=== PATIENT | female | born 1995 | race Caucasian/White ===

== ENCOUNTER → 2019-02-12 14:56 | Outpatient (POV) | payer BC, SELFPAY | PROVIDERS: Visit Provider Dermatology | DX: Z00.00 Encounter for general adult medical examination without abnormal findings (principal) ==

== ENCOUNTER → 2019-06-04 15:16 | Outpatient (POV) | payer BC, SELFPAY | PROVIDERS: Visit Provider Dermatology | DX: Z00.00 Encounter for general adult medical examination without abnormal findings (principal) ==

== ENCOUNTER → 2019-07-16 13:03 | Outpatient (POV) | payer OTHER, SELFPAY ==
[2019-07-16 14:09] LABS: Basophils % 0.4 % (0.1-2.0); Eosinophils # 0.3 K/mm3 (0.0-0.4); Eosinophils % 3.9 % (0.1-12.0); Hematocrit 42.9 % (37.0-47.0); Hemoglobin 13.4 g/dL (12.2-16.2); Lymphocytes # 1.9 K/mm3 (0.7-4.5); Lymphocytes % 29.2 % (10-50); Mean Corpuscular HGB Conc 31.2 g/dL (31.8-35.4); Mean Corpuscular Hemoglobin 30.5 pg (27.0-31.2); Mean Corpuscular Volume 97.6 fl (81-99); Mean Platelet Volume 8.1 fl (7.4-10.4); Monocytes # 0.3 K/mm3 (0.1-1.0); Monocytes % 4.6 % (1.7-9.3); Neutrophils % 61.9 % (37.0-80.0); Platelet Count 309 K/mm3 (142-424); Red Cell Distribution Width 13.9 % (11.5-17.5); White Blood Count 6.5 K/mm3 (4.8-10.8)
[2019-07-16 17:17] LABS: Alanine Aminotransferase 21 U/L (12-78); Albumin Level 3.5 gm/dL (3.4-5.0); Albumin/Globulin Ratio 0.9 (1.1-1.8); Alkaline Phosphatase 84 U/L (46-116); Anion Gap 12.4 mEq/L (5-15); Aspartate Amino Transferase 12 U/L (15-37); Bilirubin,Total 0.3 mg/dL (0.2-1.0); Blood Urea Nitrogen 11 mg/dL (7-18); Calcium 9.2 mg/dL (8.5-10.1); Carbon Dioxide 24 mmol/L (21.0-32.0); Chloride 106 mmol/L (98-107); Chol/HDL Ratio 5.4 (1-3.5); Cholesterol 209 mg/dL (140-200); Creatinine,Serum 0.91 mg/dL (0.55-1.02); Estimated Glomerular Filt Rate 77 ml/min (>60); GFR (African American) 94 ML/MIN (>60); Globulin 3.8 gm/dl (1.3-3.2); Glucose 80 mg/dL (74-106); HDL Cholesterol 39 mg/dL (29-89); LDL Cholesterol 138 mg/dL (0-130); Potassium 4.4 mmoL/L (3.5-5.1); Sodium 138 mmol/L (136-145); Total Protein,Serum 7.3 gm/dL (6.4-8.2); Triglycerides 158 mg/dL (30-200); VLDL Cholesterol 32 mg/dL (0-40)
== END ==
PROVIDERS: Visit Provider Dermatology
DX: Z79.899 Other long term (current) drug therapy (principal)
CPT/HCPCS: 36415; 80053; 80061; 85025

== ENCOUNTER → 2019-08-20 08:06 | Outpatient (CLI) | payer OTHER, SELFPAY ==
[2019-08-20 08:42] LABS: Basophils % 0.3 % (0.1-2.0); Eosinophils # 0.5 K/mm3 (0.0-0.4); Eosinophils % 4.1 % (0.1-12.0); Hematocrit 39.8 % (37.0-47.0); Hemoglobin 12.9 g/dL (12.2-16.2); Lymphocytes # 2.9 K/mm3 (0.7-4.5); Lymphocytes % 26.2 % (10-50); Mean Corpuscular HGB Conc 32.5 g/dL (31.8-35.4); Mean Corpuscular Hemoglobin 30.7 pg (27.0-31.2); Mean Corpuscular Volume 94.4 fl (81-99); Mean Platelet Volume 8.4 fl (7.4-10.4); Monocytes # 0.4 K/mm3 (0.1-1.0); Monocytes % 3.7 % (1.7-9.3); Neutrophils # 7.3 K/mm3 (1.8-7.8); Neutrophils % 65.7 % (37.0-80.0); Platelet Count 337 K/mm3 (142-424); Red Blood Count 4.22 M/mm3 (4.20-5.40); Red Cell Distribution Width 13.7 % (11.5-17.5); White Blood Count 11.2 K/mm3 (4.8-10.8)
[2019-08-20 09:45] LABS: HCG Qualitative, Serum Negative (Negative)
[2019-08-20 10:23] LABS: Alanine Aminotransferase 21 U/L (12-78); Albumin Level 3.5 gm/dL (3.4-5.0); Albumin/Globulin Ratio 0.9 (1.1-1.8); Alkaline Phosphatase 87 U/L (46-116); Anion Gap 19.1 mEq/L (5-15); Aspartate Amino Transferase 13 U/L (15-37); Bilirubin,Total 0.2 mg/dL (0.2-1.0); Blood Urea Nitrogen 16 mg/dL (7-18); Calcium 8.8 mg/dL (8.5-10.1); Carbon Dioxide 22 mmol/L (21.0-32.0); Chloride 102 mmol/L (98-107); Chol/HDL Ratio 4.8 (1-3.5); Cholesterol 179 mg/dL (140-200); Creatinine,Serum 0.92 mg/dL (0.55-1.02); Estimated Glomerular Filt Rate 76 ml/min (>60); GFR (African American) 92 ML/MIN (>60); Globulin 3.8 gm/dl (1.3-3.2); Glucose 82 mg/dL (74-106); HDL Cholesterol 37 mg/dL (29-89); LDL Cholesterol 107 mg/dL (0-130); Potassium 4.1 mmoL/L (3.5-5.1); Sodium 139 mmol/L (136-145); Total Protein,Serum 7.3 gm/dL (6.4-8.2); Triglycerides 174 mg/dL (30-200); VLDL Cholesterol 35 mg/dL (0-40)
== END ==
PROVIDERS: Visit Provider Dermatology
DX: Z79.899 Other long term (current) drug therapy (principal)
CPT/HCPCS: 36415; 80053; 80061; 84703; 85025

== ENCOUNTER → 2019-08-20 15:02 | Outpatient (POV) | payer OTHER, SELFPAY | PROVIDERS: Visit Provider Dermatology | DX: Z00.00 Encounter for general adult medical examination without abnormal findings (principal) ==

== ENCOUNTER → 2019-11-18 14:54 | Outpatient (CLI) | payer OTHER, SELFPAY ==
[2019-11-18 15:34] LABS: Urine Pregnancy, HCG Qual. Negative (Negative)
== END ==
PROVIDERS: Visit Provider Dermatology
DX: L70.0 Acne vulgaris (principal); Z79.899 Other long term (current) drug therapy
CPT/HCPCS: 81025

== ENCOUNTER 2020-02-12 18:16 | Emergency (ER) | payer OTHER, SELFPAY ==
[2020-02-12 18:24] VITALS: BP 96/55; PULSE 85; RESP 18; TEMP 36.7; O2SAT 100; BMI 40.4
[2020-02-12 18:30] VITALS: BP 96/58; PULSE 88; RESP 18; TEMP 36.6; O2SAT 99; BMI 40.4
--- NOTE | 2020-02-12 18:35 | XR_ITS ---
PROCEDURE: XR ANKLE RT MIN 3V CLINICAL INDICATION: fall Pain and swelling COMPARISON: No exams were available for comparison FINDINGS: No fracture or dislocation. No lytic or blastic change. There is normal mineralization. The joint spaces are well-preserved. No significant degenerative/arthritic changes. No erosive changes evident. Other findings:There is some mild soft tissue swelling laterally. IMPRESSION: Mild soft tissue swelling otherwise negative Dictated by: Musa Serrano MD 02/13/2020 08:27 Electronically signed by Musa Serrano MD in [place] 02/13/2020 08:27
--- NOTE | 2020-02-12 19:14 | HMH.EDUTC ---
[facility] [place] Disposition Clinical Impression: Right ankle sprain Qualifiers: Encounter type: initial encounter Involved ligament of ankle: unspecified ligament Qualified Code(s): S93.401A - Sprain of unspecified ligament of right ankle, initial encounter Right ankle pain Qualifiers: Chronicity: acute Qualified Code(s): M25.571 - Pain in right ankle and joints of right foot Disposition: Home, Self-Care Condition on Discharge: Good Additional Instructions: Rest the extremity, apply ice for 15 minutes as tolerated three or four times per day, Elevate the extremity as tolerated while you are resting. Take ibuprofen for pain. I sent in a prescription to your pharmacy. Follow up with Dr. Prince. I put in a referral but you need to call her office and schedule an appointment. Follow up with your regular doctor. GO TO THE ER FOR ANY WORSENING SYMPTOMS Prescriptions: Ibuprofen [Ibuprofen 600mg Tablet] 600 mg PO Q6HP PRN #30 tab PRN Reason: Mild Pain Transmission Status: Received by Clinic Pharm[facility] Referrals: Braden Ivan MD [Primary Care Provider] - Lisa Prince DPM [Staff Physician] - Forms: Work/School Release Time of Disposition: 19:17 Medical Decision Making - Medical Records Medical records reviewed: No: I reviewed the patient's medical records. - Sigifredo Inquiry Pt receiving controlled substance: No Vital Signs: 02/12/20 18:24 02/12/20 18:30 02/12/20 19:21 Temperature 98.0 F 98 F 98 F Temperature Source Oral Oral Oral Pulse Rate 88 Pulse Rate [Right Radial] 85 88 Respiratory Rate 18 18 18 Blood Pressure 96/58 L Blood Pressure [Right Arm] 96/55 L 96/58 L Blood Pressure Mean [Right Arm] 68 70 Blood Pressure Source Automatic Cuff Blood Pressure Source [Right Arm] Automatic Cuff Automatic Cuff Blood Pressure Position Sitting Blood Pressure Position [Right Arm] Sitting Sitting 02 Sat by Pulse Oximetry 100 99 Oxygen Delivery Method Room Air Room Air Room Air Orders (Tests/Meds): ED MEDICATIONS Discontinued Medications Generic Name Dose Route Start Last Admin Trade Name Freq PRN Reason Stop Dose Admin Ibuprofen 800 mg 02/12/20 18:46 02/12/20 18:46 Motrin 400mg Tablet PO 02/12/20 18:47 800 mg ONCE ONE Administration - Radiology Data #1 Image(s): Ankle PROCEDURE: XR ANKLE RT MIN 3V CLINICAL INDICATION: fall Pain and swelling COMPARISON: No exams were available for comparison FINDINGS: No fracture or dislocation. No lytic or blastic change. There is normal mineralization. The joint spaces are well-preserved. No significant degenerative/arthritic changes. No erosive changes evident. Other findings:There is some mild soft tissue swelling laterally. IMPRESSION: Mild soft tissue swelling otherwise negative Dictated by: Musa Serrano MD 02/13/2020 08:27 Electronically signed by Musa Serrano MD in [place] 02/13/2020 08:27 [facility] [place] HPI - General Stated complaint: AO 02-12-20 1800 injury R ankle Time Seen by Provider: 02/12/20 18:30 Mode of Arrival: Wheelchair Source of Information: Patient Limitations: No Limitations Description of Symptoms (Recalled from Triage Doc. by RN): fell carrying groceries into the house. Right ankle pain and swelling HEENT Symptoms (Recalled from RN notes): No Resp Symptoms (Recalled from RN notes): No Skin Symptoms (Recalled from RN notes): No MS Symptoms (Recalled from RN notes): Yes Functional Status (Recalled from RN notes): wnl - History of Present Illness Provider Complaint: She states that earlier this evening she was walking on her drive way when uneven concrete caused her to twist her right ankle and fall. She c/o right ankle pain and swelling. The pain is worse when she tries to walk or bear weight on the ankle. She denies any other injury. - Related Data Home Medications Medication Instructions Recorded Confirmed escitalopram oxalate 20 mg tablet 20 mg PO 30 Days tab
[2020-02-12 19:21] VITALS: BP 96/58; PULSE 88; RESP 18; TEMP 36.6; O2SAT 99
== END 2020-02-12 19:22 | disposition home or self-care (01) ==
PROVIDERS: Emergency Provider Nurse Practitioner Family; PCP Internal Medicine Adolescent Medicine
DX: S93.401A Sprain of unspecified ligament of right ankle, initial encounter (principal); W01.0XXA Fall on same level from slipping, tripping and stumbling without subsequent striking against object, initial encounter; Y92.014 Private driveway to single-family (private) house as the place of occurrence of the external cause; F41.9 Anxiety disorder, unspecified
CPT/HCPCS: 29515; 73610; 99203

== ENCOUNTER → 2020-02-26 09:08 | Outpatient (CLI) | payer OTHER, SELFPAY ==
--- NOTE | 2020-02-26 09:13 | MR_ITS ---
PROCEDURE: MR ANKLE RT WO/W CON CLINICAL INDICATION: right ankle pain, injury Lateral ankle pain with limited range of motion and bruising COMPARISON: XR ANKLE RT MIN 3V from 02/12/2020 TECHNIQUE: Routine multiplanar multi echo sequences are performed without and with gadolinium enhancement. FINDINGS: The tibiofibular ligaments appear intact. There is tear of the ATFL with fluid at the site of the ATFL. The PT FL appears intact. The deltoid ligament fibers are not well-defined consistent with at least a partial tear. There is some edema of the neck and distal aspect of the talus medially. No obvious tendon abnormalities. There is a small ankle joint effusion. IMPRESSION: 1. Tear of the ATFL with ankle joint effusion. 2. Suspected tear of the deltoid ligament 3. Bone bruise of the neck and distal aspect of the talus medially Dictated by: Musa Serrano MD 03/01/2020 10:18 Electronically signed by Musa Serrano MD in [place] 03/01/2020 10:18
== END ==
PROVIDERS: PCP Internal Medicine Adolescent Medicine; Visit Provider Podiatrist
DX: M25.571 Pain in right ankle and joints of right foot (principal); S93.401A Sprain of unspecified ligament of right ankle, initial encounter
CPT/HCPCS: 73723; A9576

== ENCOUNTER → 2020-04-28 14:32 | Outpatient (CLI) | payer OTHER, SELFPAY ==
--- NOTE | 2020-04-28 15:14 | ECG_ITS ---
APPROVED REPORT Exam: Resting ECG HR:81 bpm ECG Measurements Heart Rate 81 AXES HI 158 P 38 QRSd 68 QRS 37 QT 388 T 46 QTc 450 <Conclusion> Sinus rhythm with sinus arrhythmia with occasional premature ventricular complexes Low voltage QRS Borderline ECG Electronically signed by : Charles Irizarry, 04/28/2020 16:54:55
--- NOTE | 2020-04-28 15:15 | XR_ITS ---
PROCEDURE: XR CHEST 2V CLINICAL HISTORY: ASTHMA, PREOP COMPARISON: CR CXR CHEST(2 VIEWS-NOT PORTABLE) from 06/12/2015 CR CXR CHEST(2 VIEWS-NOT PORTABLE) from 04/17/2017 FINDINGS: The cardiomediastinal silhouette and pulmonary vascularity are within normal limits. The lungs are clear without infiltrates, suspicious nodules, or pleural effusions. No acute bony abnormalities. IMPRESSION: No acute findings. Dictated by: Musa Serrano MD 04/28/2020 15:58 Musa Serrano MD in [place] 04/28/2020 15:58
[2020-04-28 15:16] LABS: Basophils # 0.1 K/mm3 (0-0.2); Basophils % 0.6 % (0.1-2.0); Eosinophils # 0.3 K/mm3 (0.0-0.4); Eosinophils % 3.6 % (0.1-12.0); Hemoglobin 12.3 g/dL (12.2-16.2); Lymphocytes # 3.3 K/mm3 (0.7-4.5); Lymphocytes % 37.5 % (10-50); Mean Corpuscular HGB Conc 33.3 g/dL (31.8-35.4); Mean Corpuscular Hemoglobin 29.5 pg (27.0-31.2); Mean Corpuscular Volume 88.7 fl (81-99); Mean Platelet Volume 7.9 fl (7.4-10.4); Monocytes # 0.4 K/mm3 (0.1-1.0); Neutrophils # 4.8 K/mm3 (1.8-7.8); Neutrophils % 54.3 % (37.0-80.0); Platelet Count 296 K/mm3 (142-424); Red Blood Count 4.17 M/mm3 (4.20-5.40); Red Cell Distribution Width 13.9 % (11.5-17.5); White Blood Count 8.8 K/mm3 (4.8-10.8)
[2020-04-28 16:42] LABS: Chloride 107 mmol/L (98-107); Potassium 4.2 mmoL/L (3.5-5.1); Sodium 141 mmol/L (136-145)
[2020-04-28 16:44] LABS: Alanine Aminotransferase 20 U/L (12-78); Aspartate Amino Transferase 21 U/L (14-36); Blood Urea Nitrogen 16 mg/dl (7-17); Estimated Glomerular Filt Rate 78 ml/min (>60); GFR (African American) 94 ML/MIN (>60)
[2020-04-28 16:45] LABS: Albumin Level 3.9 g/dl (3.5-5.0); Albumin/Globulin Ratio 1.3 (1.1-1.8); Alkaline Phosphatase 84 U/L (38-126); Anion Gap 14.2 mEq/L (5-15); Bilirubin,Total 0.2 mg/dl (0.2-1.3); Calcium 9.8 mg/dl (8.4-10.2); Carbon Dioxide 24 mmol/L (22.0-30.0); Globulin 3.1 g/dL (1.3-3.2); Glucose 99 mg/dl (74-100)
== END ==
PROVIDERS: Visit Provider Podiatrist
DX: Z01.818 Encounter for other preprocedural examination (principal); M25.371 Other instability, right ankle
CPT/HCPCS: 36415; 71046; 80053; 85025; 93005

== ENCOUNTER → 2020-05-19 08:29 | Outpatient (CLI) | payer OTHER, SELFPAY ==
[2020-05-19 10:13] LABS: Coronavirus 19 IgG Antibody Negative (Negative); Coronavirus 19 IgM Antibody Negative (Negative)
[2020-05-19 10:57] LABS: Urine Pregnancy, HCG Qual. Negative (Negative)
== END ==
PROVIDERS: Visit Provider Podiatrist
DX: Z01.818 Encounter for other preprocedural examination (principal); M25.371 Other instability, right ankle
CPT/HCPCS: 36415; 81025; 86328

== ENCOUNTER 2020-05-20 05:03 | Day surgery (SDC) | payer OTHER, SELFPAY ==
[2020-05-13 13:28] VITALS: BMI 42.0
[2020-05-20] VITALS (16 sets, daily range): BP systolic 90–133; BP diastolic 52–85; PULSE 95–108; RESP 16–20; TEMP 36.4–43; O2SAT 94–98
--- NOTE | 2020-05-20 05:51 | HMH.OPNOTE ---
Date of procedure: 05/20/20 Pre-op Diagnosis:: 1. Right chronic ankle instability 2. Right ankle ligament rupture 3. Right tear deltoid ligament 4. Right ankle sprain, ATFL tear 5. Right peroneal tendinitis/tear 6. Right gastrocnemius equinus 7. Right ankle pain 8. Morbid obesity with BMI of 40.0-44.9, adult Post-op Diagnosis:: Same Procedure performed:: 1. Right modified Brostrum lateral ankle ligament stabilization 2. Right syndesmosis ORIF 3. Right ankle synovectomy 4. Right ankle arthrotomy 5. Right open direct deltoid repair 6. Right gastrocnemius recession 7. Right peroneal tendon debridement and repair x (brevis and longus) 8. Application of amniotic tissue graft 9. Application of posterior splint Surgeon:: Lisa Prince DPM MINE CAR REPAIRER:: José Miguel De Souza Anesthesia: GETA, regional (right popliteal nerve block) Estimated blood loss (mL): 20 Clinical Note:: Right Chronic Ankle Instability: Right ankle x-ray taken 02/12/2020 evaluated by myself. FINDINGS: No fracture or dislocation. No lytic or blastic change. There is normal mineralization. The joint spaces are well-preserved. No significant degenerative/arthritic changes. No erosive changes evident. Other findings: There is some mild soft tissue swelling laterally. IMPRESSION: Mild soft tissue swelling otherwise negative. MRI RA 02/26/20, FINDINGS: The tibiofibular ligaments appear intact. There is tear of the ATFL with fluid at the site of the ATFL. The PTFL appears intact. The deltoid ligament fibers are not well defined consistent with at least a partial tear. There is some edema of the neck and distal aspect of the talus medially. No obvious tendon abnormalities. There is a small ankle joint effusion. IMPRESSION: 1. Tear of the ATFL with ankle joint effusion. 2. Suspected tear of the deltoid ligament. 3. Bone bruise of the neck and distal aspect of the talus medially. The patient is a 25F, has a history of chronic ankle instability. She has both functional and structural limitations with her right ankle. Patient can be walking and it gives way. Patient has fallen and has an unsteady gait due to the ankle instability. 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 Her job involves standing, walking, transporting being physical in several different ways. She is unable to be 100% nonweightbearing in sitting with her job. I explained although this is not an emergency surgery, she will continue to have structural/functional limitations and likely swelling and pain. My concern is if she delay surgery too long then her ankle may give out and she could sustain further injury including peroneal tendon tear, fifth metatarsal fracture or ankle fracture. It is okay for the patient to continue to work but I recommend she either use the lace up ankle stability brace or a fracture boot to give her some protection. She is unable to tolerate physical therapy. Postoperative surgical course discussed in detail with the patient and her mother. I explained she will be unable to drive for 4-6 weeks. Patient has worsening pain, symptoms and long standing instability to right ankle. Conservative treatment failed including: oral and topical NSAIDs, ice, elevation, bracing, immobilization, strapping, taping, stretching, physical therapy, modification of shoe gear and modification of activity. We discussed surgery. All risks and benefits were discussed including but not limited to: damage to blood vessels and nerves, bleeding, infection, wound complications, delayed, mal or non-union of bone, post-traumatic arthritis, need for further surgery, need for removal of implant, prolonged swelling of the extremity, prolonged pain, CRPS/RSD, DVT, and anesthetic complications. No guarantees were given. All questions fully answered. The patient/mother verbalized understanding and agreed to proceed with surgery. Labs/pre op testing pending. PCP Ramya Das/Dr. Ivan's group granted medical clearance. Discussed DME: recommend crutches and R
--- NOTE | 2020-05-20 06:51 | SUR.OPER ---
0651-family updated at this time
--- NOTE | 2020-05-20 08:24 | XR_ITS ---
PROCEDURE: XR ANKLE RT 2V CLINICAL INDICATION: ANKLE RECONSTRUCTION IN OR COMPARISON: CR ANKR3 ANKLE-RT-3 VIEWS from 03/08/2016 FINDINGS: Fluoroscopy time: 38 seconds. Single view submitted showing syndesmotic repair with lateral fibular bone plate and medial tibial button with translucent fixator with good alignment. IMPRESSION: Good alignment status post syndesmosis repair Dictated by: Musa Serrano MD 05/20/2020 16:54 Musa Serrano MD in [place] 05/20/2020 16:54
--- NOTE | 2020-05-20 08:30 | XR_ITS ---
PROCEDURE: XR ANKLE RT MIN 3V CLINICAL INDICATION: Post op ankle Follow-up surgery COMPARISON: CR ANKR3 ANKLE-RT-3 VIEWS from 03/08/2016 CR XR ANKLE RT MIN 3V from 02/12/2020 CR XR ANKLE RT 2V from 05/20/2020 FINDINGS: Status post syndesmotic repair with lateral bone plate at distal fibula and 8 button along the distal tibia medially with a translucent fixator. There is good alignment with preservation of the ankle mortise. Posterior splint is in place. IMPRESSION: Good alignment status post syndesmotic repair of the distal tib fib as described above Dictated by: Musa Serrano MD 05/20/2020 16:30 Musa Serrano MD in [place] 05/20/2020 16:30
--- NOTE | 2020-05-20 08:31 | SUR.OPER ---
0813-family updated at this time
--- NOTE | 2020-05-20 09:04 | P.PN_ITS ---
[facility] Anesthesia Record Part I Intake, IV Amount: 1,500 Estimated blood loss (mL): 20 Urine output (mL): 0 Blood Products used (#): none Blood Pressure: 90/60 SaO2: 96 Pulse Rate: 100 Respiratory Rate: 20 Temperature: 99.1 F Patient is:: Awake, Drowsy Stable to PACU at:: 08:59
--- NOTE | 2020-05-20 09:04 | HMH.ANESCL ---
[facility] Anesthesia Checklist - Patient Identification Patient Identification: Arm Band, Verbal (Name & ) - Structural Data Admitted From: Home Planned Operative Procedure/s: r ankle stabilization Consent for Planned Operative Procedure(s) Verified: Yes Verified Documents: History and Physical - NPO Status Verified Time NPO: 00:00 - Chart Verification Results Verified: CBC, BMP - Additional verifications Patient : No Anesthesia Reactions: No Hx Blood Transfusions: No Blood Transfusion Reaction: No Cephalosporin Allergy: No Previous Colonoscopy: No - Cardiovascular Assessment Heart Sounds: S1 & S2 Pulse Strength: Baseline Pulse Rhythm: Regular Peripheral Edema: No - Airway Assessment C-Spine Mobility Assessed: Yes TMJ Mobility Assessed: Yes Dentition: Good Dentition - Neurological Assessment Level of Consciousness: Awake, Alert, Appropriate Hx Seizures: No Numbness or tingling in extremities: No - Anesthesia Plan Anesthesia Risk discussed: Yes Anesthesia Plan: Verified ASA Class: II Anesthesia Type: General w/block [facility] History I have reviewed the patient's past medical history: Yes Medical History: Reports:: Anxiety Denies:: Cancer, Diabetes Mellitus Type 1, Diabetes Mellitus Type 2, Internal Pacemaker, MRSA, Seizures *Have you ever received a pneumonia vaccine?: No *Have you received a flu vaccine this season?: Yes (2019) Other Medical History: Denies: Blood Transfusion Reaction Anesthesia experience/problems:: none Other Surgeries: Yes: No Previous Surgery. No: Pacemaker Amputation: No Fractures: No - *Social History Last grade of school completed: Advanced degree Smoking Status: Never smoker Alcohol Intake: never Substance Use Type: denies use *Occupational Status:: employed Housing: house Household Members: spouse *Travel in the last 8 weeks: None - Psychiatric History Pschychiatric History:: Reports:: Anxiety Family Hx:: No significant family history
--- NOTE | 2020-05-20 09:22 | PC.NURSE ---
0919- rad @ bedside getting post-op xrays
--- NOTE | 2020-05-20 09:48 | PC.NURSE ---
see emar for biomedical electronics technician
--- NOTE | 2020-05-20 12:42 | P.PN_ITS ---
[facility] Anesthesia Record Part II Discharge Time: 09:29 Destination: Surgical Day Care (OP Surgery) PACU nurse assessment reviewed?: Yes Patient Condition:: Good Anesthesia Complications:: None Swallowing reflex intact?: Yes Cyanosis?: No Blood Pressure: 120/70 Pulse Rate: 107 Temperature: 98.5 F Mental Status: Alert & Oriented Pain level:: 0 Nausea and/or vomitting:: None Intake, IV Amount: 30
== END 2020-05-20 11:44 | disposition home or self-care (01) ==
LOC: OR 05:04
PROVIDERS: PCP Internal Medicine Adolescent Medicine; Visit Provider Podiatrist
PROC: (CPT 27829; principal; 2020-05-20 06:00)
DX: M25.371 Other instability, right ankle (principal); M21.6X1 Other acquired deformities of right foot; M66.371 Spontaneous rupture of flexor tendons, right ankle and foot; M76.71 Peroneal tendinitis, right leg; E66.01 Morbid (severe) obesity due to excess calories; Z68.41 Body mass index [BMI] 40.0-44.9, adult; M66.361 Spontaneous rupture of flexor tendons, right lower leg; M66.271 Spontaneous rupture of extensor tendons, right ankle and foot; M62.461 Contracture of muscle, right lower leg; M24.471 Recurrent dislocation, right ankle
CPT/HCPCS: 27829; 27687; 27695; 27658; 27664; C5275; 73600; 73610; 96374; C1713; C1762; C1776; J2405; Q4211

== ENCOUNTER 2020-08-07 14:00 | Outpatient (RCR) | payer OTHER, SELFPAY ==
--- NOTE | 2020-07-06 11:50 | HMH.PTOPEV ---
PT Outpatient Evaluation Rehab PT Outpatient Evaluation Start: 07/06/20 11:14 Freq: Status: Active Protocol: Document 07/06/20 11:16 JULIO C (Rec: 07/06/20 11:50 JULIO C [id number]) Electronically Signed By Bladimir Monroe, PT 07/06/20 11:16 Outpatient Therapy Subjective History Subjective History Pt presents s/p R ankle stabilization sx. (peroneal repair, deltoid repair, gastroc recession) on 05/20/20. Pt reports sx. d/t chronic recurrent R ankle instability, with most recent sprain in February 2020. Pt very limited R ankle ROM and strength d/t prolonged NWBing and immobilization secondary to sx . protocol. Pt reports lingering post-op soreness as well. Chief Complaint Pain,Stiff,Weakness Symptom Type Ache,Sharp,Dull Symptoms Relieved By Rest/Positioning,Ice Symptoms Aggravated By Standing,Walking Prior Functional Limitations Standing,Walking Current Functional Limitations Standing,Walking,Stairs Symptom Description Constant but Variable Level of pain today (0-10) 3 Pain scale - at its best (0-10) 2 Pain scale - at its worst (0-10) 6 Ankle/Foot Eval Gait Observation General Gait Pattern Observation Decrease Weight Bear (R), Decrease Stride Lngth (R) Assistive Device Ambulation Assistive Device Axillary Crutches Palpation Tenderness right Ankle/Foot Palpation Findings Tenderness Ankle/Foot Palpation Overall Comment 2-3/4 sx. incisions ROM Ankle/Foot Dorsiflexion w/Knee Extended +10 Active Range Motion (degrees) Ankle/Foot Dorsiflexion w/Knee Extended +8 Passive Range (degrees) Ankle/Foot Plantar Flexion Active Range 10-40 of Motion (degrees) Ankle/Foot Eversion Active Range of 0-12 Motion (degrees) Ankle/Foot Inversion Active Range of 0-20 Motion (degrees) MMT Ankle Dorsiflexion Strength Grade 3 Fair Ankle Plantarflexion Strength Grade 3+ Fair+ Foot Eversion Strength Grade 3+ Fair+ Foot Inversion Strength Grade 3+ Fair+ Outpatient Therapy Assessment Impairments Problems/Impairmments Palpation Tenderness,Impaired Range of Motion,Impaired Strength,Impaired Gait Pattern ,Impaired Walking,Impaired Standing,Impaired Stair Climbing,Impaired Squatting,
--- NOTE | 2020-08-04 15:21 | HMH.RHREAS ---
Rehab Reassessment Rehab OP Re-assessment Start: 08/04/20 14:01 Freq: Status: Active Protocol: Document 08/04/20 14:01 JULIO C (Rec: 08/04/20 15:09 CHIKISESMEIKE [id number]) Electronically Signed By Bladimir Monroe, PT 08/04/20 14:01 Rehab Re-assessment Subjective Subjective PT REPORTS 3-7/10 R ANKLE/FOOT PAIN ON VAS, AND FEELS 60% BETTER OVERALL SINCE I EVAL Objective Objective Notes AROM: R ANKLE DF 0, PF 0-43, INV 0-25, EVR 0-12 PROM: R ANKLE DF 0-8, PF 0-50, INV 0-30, EVR 0-18 MMT: R ANKLE DF 4-4+/5, PF 4-/ 5, INV 4-/5, EVR 4-/5 TTP: SX INCISION MEDIAL ACHILLES 09/07 Assessment Progress Assessment Slower Than Expected Assessment Notes PT W/IMPROVED ROM, STRENGTH, AND TTP, HOWEVER, STILL POSSESSES SIGNIFICANT LIMITATIONS IN AROM, STRENGTH, AND GAIT PATTERN Patient goals met STG'S 02/09 LTG'S 09/15 Goals Not Met STG'S 10/12, LTG'S 07/16 Plan Plan PT TO CONT. W/SKILLED P.T. TO MAKE FURTHER IMPROVEMENTS IN R ANKLE ROM, STRENGTH, AND TTP TO ALLOW FOR OPTIMAL FUNCTION Frequency of Therapy 1-2X/WK Duration of therapy 3-4 WKS Time and Billing Re-Eval Time 15 Re-Eval Billing Units 1 PHYSICIAN CERTIFICATION: I certify the specified therapy services for Katelyn Malloy are required, authorized, and reviewed every 30 days.
== END 2020-08-07 14:05 | disposition home or self-care (01) ==
LOC: PT 14:00
PROVIDERS: PCP Internal Medicine Adolescent Medicine; Visit Provider Podiatrist
DX: Z98.890 Other specified postprocedural states; M25.371 Other instability, right ankle
CPT/HCPCS: 20560; 97010; 97014; 97110; 97112; 97140; 97163; 97164; G0283

== ENCOUNTER → 2020-08-10 15:41 | Outpatient (CLI) | payer OTHER, SELFPAY ==
--- NOTE | 2020-08-10 15:44 | XR_ITS ---
PROCEDURE: XR ANKLE WT BEARING RT MIN 3V CLINICAL INDICATION: post-op pain Follow-up surgery COMPARISON: CR ANKR3 ANKLE-RT-3 VIEWS from 03/08/2016 CR XR ANKLE RT MIN 3V from 02/12/2020 CR XR ANKLE RT 2V from 05/20/2020 CR XR ANKLE RT MIN 3V from 05/20/2020 FINDINGS: Status post syndesmosis repair with lateral fibular bone plate with translucent fixator and medial metallic button at the distal tibia with good alignment and preservation the ankle mortise. Small bone island noted within the cuboid IMPRESSION: Good alignment postsurgical changes Dictated by: Musa Serrano MD 08/10/2020 17:38 Musa Serrano MD in [place] 08/10/2020 17:38
== END ==
PROVIDERS: PCP Internal Medicine Adolescent Medicine; Visit Provider Podiatrist
DX: Z98.890 Other specified postprocedural states (principal); M25.371 Other instability, right ankle
CPT/HCPCS: 73610

== ENCOUNTER → 2020-08-11 09:30 | Outpatient (CLI) | payer OTHER, SELFPAY ==
--- NOTE | 2020-08-11 09:30 | MR_ITS ---
PROCEDURE: MR ANKLE RT WO/W CON CLINICAL INDICATION: postop pain COMPARISON: MR MR ANKLE RT WO/W CON from 02/26/2020 CR XR ANKLE WT BEARING RT MIN 3V from 08/10/2020 TECHNIQUE: Routine multiplanar multi echo sequences are performed without gadolinium enhancement. FINDINGS: There has been interval syndesmotic repair with lateral fibular bone plate and medial tibial buttons. There is abnormal signal intensity of the peroneus brevis distal to the lateral malleolus with ill definition of the peroneus brevis at this area. This area also shows contrast enhancement. A partial tear or severe tendonitis/tendinosis is considered. There is some edema in this region as well. There is also some linear increased T2 signal with some minimal enhancement involving the peroneus longus tendon at this area which could be also be due to a partial tear. Small amount of fluid is present at the surgical site. Artifact is present from the previous surgery. The ATFL has been repaired and now apposes the talus. There is a moderate degree of motion on the coronal images. The deltoid ligament is not well delineated. The there is increased T2 signal along the plantar surface of the calcaneus. IMPRESSION: 1. Postsurgical changes of the tib fib with lateral fibular bone plate and medial tibial buttons with syndesmotic repair. 2. Abnormal signal intensity the peroneal brevis as described above suspicious for partial tear or tendinosis/tendinitis. There is also some increase T2 signal in the peroneus longus which may be due to partial tear or tendinitis/tendinosis. 3. Soft tissue edema along the plantar surface of the calcaneus Dictated by: Musa Serrano 08/11/2020 15:23 Musa Serrano in [place] 08/11/2020 15:23
== END ==
PROVIDERS: PCP Internal Medicine Adolescent Medicine; Visit Provider Podiatrist
DX: Z98.890 Other specified postprocedural states (principal)
CPT/HCPCS: 73723; A9576

== ENCOUNTER 2020-09-06 03:47 | Emergency (ER) | payer OTHER, SELFPAY ==
[2020-09-06 03:48] VITALS: BP 122/80; PULSE 111; RESP 16; TEMP 36.8; O2SAT 97; BMI 44.4
[2020-09-06 04:24] LABS: Microscopic, Urine URINE MICROSCOPIC (MICROSCOPIC)
[2020-09-06 04:26] LABS: Appearance,Urine CLOUDY (Clear); Bilirubin,Urine Negative (Negative); Blood, Urine 3+ (Negative); Color,Urine YELLOW (Yellow); Glucose,Urine (UA) Negative (Negative); Ketones,Urine Negative (Negative); Leukocyte Esterase,Urine 3+ (Negative); Nitrate,Urine Negative (Negative); Protein,Urine Negative (Negative); Urobilinogen,Urine 0.2 EU/dl (0.2)
[2020-09-06 04:30] LABS: Urine Pregnancy, HCG Qual. Negative (Negative)
[2020-09-06 04:31] LABS: RBC,Urine 20-50 #/hpf (0-3); WBC,Urine TNTC #/hpf (0-3)
--- NOTE | 2020-09-06 04:40 | HMH.EDGENADL ---
ED Disposition Clinical Impression: Urinary tract infection Disposition: Home, Self-Care Condition on Discharge: Good Instructions: DI for Urinary Tract Infection (UTI), DI for Urinary Tract Infection in Children Prescriptions: Cefdinir [Omnicef 300mg Capsule] 300 mg PO BID #20 cap Transmission Status: Pending to Clinic [facility] Referrals: Braden Ivan MD [Primary Care Provider] - - Critical Care Critical Care Time: No Attestation: On 09/06/20, the high probability of a clinically significant, sudden or life threatening deterioration of the following system(s) required my full and direct attention, intervention and personal management. The time I documented below is in addition to time spent performing reported procedures but includes the following listed in this critical care notation. Medical Decision Making - Medical Records Medical records reviewed: Yes: I reviewed the patient's medical records. - Sigifredo Inquiry Pt receiving controlled substance: No Vital Signs: 09/06/20 03:48 Temperature 98.2 F Temperature Source Oral Pulse Rate [Left Radial] 111 H Respiratory Rate 16 Blood Pressure [Right Arm] 122/80 Blood Pressure Mean [Right Arm] 94 Blood Pressure Source [Right Arm] Automatic Cuff Blood Pressure Position [Right Arm] Sitting 02 Sat by Pulse Oximetry 97 Oxygen Delivery Method Room Air - Lab Data Lab Results 09/06/20 03:57: Urine Color Yellow, Urine Appearance Cloudy, Urine pH 7.0, Ur Specific [place] 1.010, Urine Protein Negative, Urine Glucose (UA) Negative, Urine Ketones Negative, Urine Blood 3+, Urine Nitrate Negative, Urine Bilirubin Negative, Urine Urobilinogen 0.2, Ur Leukocyte Esterase 3+ A, Urine RBC 20-50, Urine WBC Tntc 09/06/20 03:57: Urine HCG, Qual Negative Orders (Tests/Meds): ED MEDICATIONS Discontinued Medications Generic Name Dose Route Start Last Admin Trade Name Freq PRN Reason Stop Dose Admin Phenazopyridine HCl 200 mg 09/06/20 04:33 09/06/20 04:35 Phenazopyridine 200mg Tablet PO 09/06/20 04:34 200 mg ONCE ONE Administration ORDERS Category Date Time Status Urine Culture Stat Micro 09/06/20 03:57 Received General Adult HPI - General Chief complaint: Urogenital-Female Stated complaint: Burning,frequency,bladder pain Time Seen by Provider: 09/06/20 04:40 Mode of Arrival: Ambulatory Limitations: No Limitations Description of Symptoms (Recalled from ER Triage Doc. by RN): Pt c/o dysuria starting around 8pm that has gotten worse. She does report lower back pain for 2 days as well. She states she feels like my bladder is having spasms . - History of Present Illness HPI narrative: This is a 25-year-old female who presents with a 6-hour history of dysuria. No fever, chills, nausea, vomiting, diarrhea, constipation, back pain. This is never happened before. - Related Data Home Medications Medication Instructions Recorded Confirmed escitalopram oxalate 20 mg tablet 20 mg PO DAILY 30 Days tab 09/14/18 08/11/20 topiramate 50 mg tablet 50 mg PO DAILY 30 Days tab 09/14/18 08/11/20 gabapentin 300 mg capsule 300 mg PO DAILY PRN cap 07/14/20 08/11/20 Previous Rx's Medication Instructions Recorded ibuprofen 800 mg tablet 800 mg PO BID #60 tab 04/28/20 triamcinolone acetonide 0.1 % 1 applic TOPICAL QID PRN 21 Days 06/22/20 topical cream #30 g levonorgestrel-ethinyl estradiol See Rx Instructions .ROUTE 07/01/20 0.1 mg-20 mcg tablet .COMPLEX #84 tablet Cefdinir [Omnicef 300mg Capsule] 300 mg PO BID #20 cap 09/06/20 Allergies Allergy/AdvReac Type Severity Reaction Status Date / Time No Known Allergies Allergy Verified 08/11/20 14:58 [facility] History - Hepatitis A Screen Drug use history?: No High risk sexual behaviors?: No History of sexually transmitted infection?: No Currently employed?: No Childcare worker?: No Do you have indoor plumbing?: Yes Do you have electricity?: Yes Attestation state
[2020-09-06 04:49] VITALS: BP 122/80; PULSE 111; RESP 16; TEMP 36.8; O2SAT 97
== END 2020-09-06 04:50 | disposition home or self-care (01) ==
PROVIDERS: Emergency Provider Physician Assistant; PCP Internal Medicine Adolescent Medicine
DX: N30.00 Acute cystitis without hematuria (principal); F41.9 Anxiety disorder, unspecified; Z79.899 Other long term (current) drug therapy
CPT/HCPCS: 81001; 81025; 87086; 87088; 87186; 99282

== ENCOUNTER → 2020-09-09 16:05 | Outpatient (CLI) | payer OTHER, SELFPAY ==
[2020-09-09 17:00] LABS: Basophils # 0.1 K/mm3 (0-0.2); Basophils % 0.7 % (0.1-2.0); Eosinophils # 0.3 K/mm3 (0.0-0.4); Eosinophils % 4.8 % (0.1-12.0); Hematocrit 40.9 % (37.0-47.0); Hemoglobin 13.9 g/dL (12.2-16.2); Lymphocytes # 2.5 K/mm3 (0.7-4.5); Lymphocytes % 37.8 % (10-50); Mean Corpuscular HGB Conc 33.9 g/dL (31.8-35.4); Mean Corpuscular Hemoglobin 30.7 pg (27.0-31.2); Mean Corpuscular Volume 90.7 fl (81-99); Mean Platelet Volume 8.7 fl (7.4-10.4); Monocytes # 0.3 K/mm3 (0.1-1.0); Monocytes % 5.1 % (1.7-9.3); Neutrophils # 3.4 K/mm3 (1.8-7.8); Neutrophils % 51.5 % (37.0-80.0); Platelet Count 317 K/mm3 (142-424); Red Blood Count 4.51 M/mm3 (4.20-5.40); Red Cell Distribution Width 14.2 % (11.5-17.5); White Blood Count 6.6 K/mm3 (4.8-10.8)
[2020-09-09 18:14] LABS: Chloride 108 mmol/L (98-107); Potassium 4.6 mmoL/L (3.5-5.1); Sodium 140 mmol/L (136-145)
[2020-09-09 18:17] LABS: Anion Gap 13.6 mEq/L (5-15); Blood Urea Nitrogen 14 mg/dl (7-17); Calcium 10.2 mg/dl (8.4-10.2); Carbon Dioxide 23 mmol/L (22.0-30.0); Estimated Glomerular Filt Rate 78 ml/min (>60); GFR (African American) 94 ML/MIN (>60); Glucose 100 mg/dl (74-100)
[2020-09-09 18:32] LABS: Coronavirus 19 IgG Antibody Positive (Negative); Coronavirus 19 IgM Antibody Negative (Negative)
[2020-09-10 12:57] LABS: HCG Qualitative, Serum Negative (Negative)
== END ==
PROVIDERS: PCP Internal Medicine Adolescent Medicine; Visit Provider Podiatrist
DX: Z01.818 Encounter for other preprocedural examination (principal); Z86.19 Personal history of other infectious and parasitic diseases; S86.311A Strain of muscle(s) and tendon(s) of peroneal muscle group at lower leg level, right leg, initial encounter; M76.71 Peroneal tendinitis, right leg
CPT/HCPCS: 36415; 80048; 84702; 84703; 85025; 86328

== ENCOUNTER 2020-09-11 10:06 | Day surgery (SDC) | payer OTHER, SELFPAY ==
[2020-09-08 11:23] VITALS: BMI 42.4
[2020-09-11] VITALS (9 sets, daily range): BP systolic 100–131; BP diastolic 50–84; PULSE 59–109; RESP 16–20; TEMP 36.1–36.4; O2SAT 94–97
--- NOTE | 2020-09-11 13:53 | HMH.OPNOTE ---
Date of procedure: 09/11/20 Pre-op Diagnosis:: 1. Right peroneal tendon tear 2. Right ankle synovitis Post-op Diagnosis:: Same + tear at peroneal myotendinous junction Procedure performed:: 1. Right peroneus brevis tendon repair 2. Right peroneus longus tendon repair (+ repair of tear at peroneal myotendinous junction) 3. Right foot synovectomy 4. Application of amniotic graft 5. Application of posterior splint Surgeon:: Lisa Prince DPM REGIONAL TRAINER:: Braden Watson Anesthesia: GETA, regional (right popliteal nerve block) Estimated blood loss (mL): 20 Clinical Note:: The patient is a 25-year-old female who underwent a right Brostr?m, syndesmosis stabilization, deltoid ligament repair and peroneal tendon debridement with gastrocnemius recession on 05/20/2020. Patient was making improvements and was full weightbearing in a supportive shoe with an ankle brace during physical therapy. She states she had a setback and physical therapy and it never improved. She was reimmobilized in a new MRI confirmed peroneal tendon pathology. I reviewed and discussed the MRI with the patient. I explained that there are postsurgical changes to the MRI. The patient's pain clinically is isolated to the brevis tendon inferior to the distal fibula. Based on the increase in acute pain with passive range of motion it is possible that she partially tore the PB. I explained is also possible that it is tendinosis/tendinitis. Patient failed a strict nonweightbearing in the boot with crutches and walking in the boot. Unable to tolerate more physical therapy due to worsening pain and symptoms. After a long discussion with the patient in regards to the conservative versus surgical treatment for the tendon tear/deformity, the patient has elected to proceed with surgery because they have failed conservative treatment and continue to have pain and worsening symptoms affecting daily activities. The patient has been instructed on the planned procedure, all risk versus benefits of the procedure discussed. These include but are not limited to: bleeding, infection, nerve and blood vessel damage, need for further surgery, delay in healing of soft tissue or bone, tendon re-rupture, failure of bones to heal, non-union, mal-union, failure of the implant, prolonged pain and recovery, CRPS/RSD, DVT and anesthetic complications. No guarantees were given. All questions fully answered. The patient verbalized understanding and agreed to proceed with surgery. Written consent was obtained. Necessary labs and pre-op testing ordered: CBC, CMP, covid. Patient has crutches, RKS. e-Rx for Percocet 7.5mg #42, gabapentin 300mg TID prn, Zofran 4mg # 30, Motrin 800mg # 60 given. Operative findings:: There was significant scar tissue noted full-thickness to the right lateral ankle. There was synovitis noted around the peroneal tendons. There was thickened scar tissue around both the brevis and longus tendons inferior to the distal malleolus. The tendon sheath was scarred down to the brevis tendon at this level making it not well visualized until scar fibrosis tissue debrided. There was a longitudinal tear noted more proximal to the distal fibula. Tear around 2-3 cm long noted at the peroneal myotendinous junction. Operative note:: On this date and time, the patient was deemed an appropriate surgical candidate. With informed consent signed, the patient was taken to the operating theater after a pre-op regional popliteal nerve block was given by anesthesia. The patient was positioned supine. General anesthesia was induced. Tourniquet was applied to the RIGHT mid calf. The lower extremity was prepped and draped in normal sterile fashion. Right ankle synovectomy: The tourniquet was inflated at 225 mmHg. Attention was directed to the lateral foot where the incision was mapped out extending proximal the distal fibula extending toward the base of the fifth metatarsal along the course of the peroneal tendons, over previous thick scar tis
--- NOTE | 2020-09-11 14:40 | SUR.OPER ---
1429-updated family at this time
--- NOTE | 2020-09-11 16:22 | HMH.ANESCL ---
[facility] Anesthesia Checklist - Patient Identification Patient Identification: Arm Band, Verbal (Name & ) - Structural Data Admitted From: Home Planned Operative Procedure/s: right peroneal tendon repair Consent for Planned Operative Procedure(s) Verified: Yes Verified Documents: History and Physical - NPO Status Verified Time NPO: 00:00 - Chart Verification Results Verified: CBC, BMP - Additional verifications Patient : No Anesthesia Reactions: No Hx Blood Transfusions: No Blood Transfusion Reaction: No Cephalosporin Allergy: No Previous Colonoscopy: No - Cardiovascular Assessment Heart Sounds: S1 & S2 Pulse Strength: Baseline Pulse Rhythm: Regular Peripheral Edema: No - Airway Assessment C-Spine Mobility Assessed: Yes TMJ Mobility Assessed: Yes Dentition: Good Dentition - Neurological Assessment Level of Consciousness: Awake, Alert, Appropriate Hx Seizures: No Numbness or tingling in extremities: No - Anesthesia Plan Anesthesia Risk discussed: Yes Anesthesia Plan: Verified ASA Class: III Anesthesia Type: General [facility] History I have reviewed the patient's past medical history: Yes Medical History: Reports:: Anxiety Denies:: Cancer, Diabetes Mellitus Type 1, Diabetes Mellitus Type 2, Internal Pacemaker, MRSA, Seizures *Have you ever received a pneumonia vaccine?: No *Have you received a flu vaccine this season?: Yes Other Medical History: Denies: Blood Transfusion Reaction Anesthesia experience/problems:: none Other Surgeries: Yes: No Previous Surgery. No: Pacemaker Amputation: No Fractures: No - *Social History Last grade of school completed: Advanced degree Smoking Status: Never smoker Alcohol Intake: never Substance Use Type: denies use *Occupational Status:: employed Housing: house Household Members: spouse *Travel in the last 8 weeks: None - Psychiatric History Pschychiatric History:: Reports:: Anxiety Family Hx:: No significant family history
--- NOTE | 2020-09-11 16:24 | HMH.ANESI ---
[facility] Anesthesia Record Part I Intake, IV Amount: 1,100 Estimated blood loss (mL): 10 Urine output (mL): 0 Blood Products used (#): none Blood Pressure: 100/71 SaO2: 96 Pulse Rate: 109 Respiratory Rate: 20 Temperature: 97.5 F Patient is:: Awake, Stable Stable to PACU at:: 16:19
== END 2020-09-11 17:25 | disposition home or self-care (01) ==
LOC: OR 10:06
PROVIDERS: PCP Internal Medicine Adolescent Medicine; Visit Provider Podiatrist
PROC: (CPT 27625; principal; 2020-09-11 13:00)
DX: S86.311A Strain of muscle(s) and tendon(s) of peroneal muscle group at lower leg level, right leg, initial encounter (principal); M76.71 Peroneal tendinitis, right leg; E66.01 Morbid (severe) obesity due to excess calories; Z68.41 Body mass index [BMI] 40.0-44.9, adult; M65.871 Other synovitis and tenosynovitis, right ankle and foot; X58.XXXA Exposure to other specified factors, initial encounter
CPT/HCPCS: 27625; 28200 ×2; 96374; C1762; J2405; Q4211

== ENCOUNTER → 2020-12-02 14:48 | Outpatient (CLI) | payer OTHER, SELFPAY ==
[2020-12-02 15:08] LABS: Basophils # 0.1 K/mm3 (0-0.2); Basophils % 0.8 % (0.1-2.0); Eosinophils # 0.3 K/mm3 (0.0-0.4); Eosinophils % 4.3 % (0.1-12.0); Hematocrit 39.8 % (37.0-47.0); Hemoglobin 13.7 g/dL (12.2-16.2); Lymphocytes # 2.3 K/mm3 (0.7-4.5); Lymphocytes % 34.5 % (10-50); Mean Corpuscular HGB Conc 34.5 g/dL (31.8-35.4); Mean Corpuscular Hemoglobin 31.1 pg (27.0-31.2); Mean Corpuscular Volume 90.1 fl (81-99); Mean Platelet Volume 8.7 fl (7.4-10.4); Monocytes # 0.3 K/mm3 (0.1-1.0); Monocytes % 4.7 % (1.7-9.3); Neutrophils # 3.7 K/mm3 (1.8-7.8); Neutrophils % 55.7 % (37.0-80.0); Platelet Count 287 K/mm3 (142-424); Red Blood Count 4.42 M/mm3 (4.20-5.40); Red Cell Distribution Width 14.1 % (11.5-17.5); White Blood Count 6.6 K/mm3 (4.8-10.8)
[2020-12-02 15:22] LABS: Hemoglobin A1C 5.5 % (4.0-6.0)
[2020-12-02 15:53] LABS: Alanine Aminotransferase 25 U/L (12-78); Albumin Level 4.4 g/dl (3.5-5.0); Albumin/Globulin Ratio 1.5 (1.1-1.8); Alkaline Phosphatase 94 U/L (38-126); Anion Gap 16.5 mEq/L (5-15); Aspartate Amino Transferase 29 U/L (14-36); Bilirubin,Total 0.4 mg/dl (0.2-1.3); Blood Urea Nitrogen 14 mg/dl (7-17); Calcium 9.9 mg/dl (8.4-10.2); Carbon Dioxide 16 mmol/L (22.0-30.0); Chloride 113 mmol/L (98-107); Chol/HDL Ratio 4.5 (1-3.5); Cholesterol 224 mg/dl (140-200); Estimated Glomerular Filt Rate 78 ml/min (>60); GFR (African American) 94 ML/MIN (>60); Globulin 2.9 g/dL (1.3-3.2); Glucose 95 mg/dl (74-100); HDL Cholesterol 50 mg/dl (40-60); Potassium 4.5 mmoL/L (3.5-5.1); Sodium 141 mmol/L (136-145); Total Protein,Serum 7.3 g/dl (6.3-8.2); Triglycerides 194 mg/dl (30-150); VLDL Cholesterol 39 mg/dL (0-40)
[2020-12-02 16:08] LABS: 25-OH Vitamin D, Total 25.1 ng/mL (30-100); Free Thyroxine Index 2.9 ug/dL (5.93-13.13); T4 (Thyroxine) 12.8 ug/dl (5.53-11.0); Triiodothryronine (T3) Uptake 23 % (23.5-40.5)
[2020-12-02 16:22] LABS: Thyroid Stimulating Hormone 1.63 uIU/mL (0.465-4.68)
[2020-12-02 16:43] LABS: Vitamin B12 219 pg/mL (239-931)
== END ==
PROVIDERS: Visit Provider Internal Medicine Adolescent Medicine
DX: R53.81 Other malaise (principal); R53.83 Other fatigue; E55.9 Vitamin D deficiency, unspecified; Z68.41 Body mass index [BMI] 40.0-44.9, adult
CPT/HCPCS: 36415; 80053; 80061; 82306; 82607; 83036; 84436; 84443; 84479; 85025

== ENCOUNTER → 2021-02-11 08:38 | Outpatient (CLI) | payer OTHER, SELFPAY ==
--- NOTE | 2021-02-11 08:43 | XR_ITS ---
PROCEDURE: XR ANKLE WT BEARING RT MIN 3V CLINICAL INDICATION: evaluate for stress reaction/stress fracture Pain COMPARISON: CR XR ANKLE RT MIN 3V from 02/12/2020 CR XR ANKLE RT 2V from 05/20/2020 CR XR ANKLE RT MIN 3V from 05/20/2020 CR XR ANKLE WT BEARING RT MIN 3V from 08/10/2020 FINDINGS: Status post syndesmotic repair with lateral fibular bone plate and translucent fixator with they medial metallic button at the distal tibia. The ankle mortise is preserved. On the AP view there is a vague oblique lucency at the base of the medial malleolus which could represent a nondisplaced fracture. This however could be due to an overlying artifact as a lucency appears to extend superiorly within the soft tissues. This is only seen on the AP view. Sclerotic focus overlies the cuboid posteriorly and may be due to a bone island IMPRESSION: Questionable nondisplaced fracture at the base of the medial malleolus versus artifact. CT or MRI may confirm. Good alignment status post syndesmotic repair Dictated by: Musa Serrano MD 02/11/2021 10:37 Musa Serrano MD in [place] 02/11/2021 10:37
== END ==
PROVIDERS: PCP Internal Medicine Adolescent Medicine; Visit Provider Podiatrist
DX: G89.18 Other acute postprocedural pain (principal); M25.571 Pain in right ankle and joints of right foot; Z98.890 Other specified postprocedural states
CPT/HCPCS: 73610

== ENCOUNTER → 2021-02-17 07:54 | Outpatient (CLI) | payer OTHER, SELFPAY ==
--- NOTE | 2021-02-17 07:55 | CT_ITS ---
PROCEDURE: CT ANKLE RT WO CON CLINICAL HISTORY: ankle pain COMPARISON: MR MR ANKLE RT WO/W CON from 08/11/2020 CR XR ANKLE WT BEARING RT MIN 3V from 02/11/2021 TECHNIQUE: Axial images obtained with sagittal and coronal reformats. All CT scans at the facility use one or more dose reduction, viz: automated exposure control, ma/kV adjustment per patient size (including targeted exams where dose is matched to indication, i.e. head), or iterative reconstruction technique. FINDINGS: There is some motion artifact which does somewhat degrade image quality. Accounting for this, no definitive discrete acute fracture. Postop changes of syndesmosis of right ankle with plate and screws fixating distal fibula and small plate fixating the medial malleolus are again noted. Ankle joint mortise appears intact. There is mild soft tissue swelling about the ankle joint. No other abnormality. IMPRESSION: Postop changes of repair of syndesmosis of right ankle as noted previously with plate and screws fixating distal fibula and small plate fixating the medial malleolus. No definite acute fracture. No dislocation. Mild soft tissue swelling about the ankle joint. Dictated by: Luis Angel Loza MD 02/17/2021 08:49 Luis Angel Loza MD in [place] 02/17/2021 08:49
== END ==
PROVIDERS: PCP Internal Medicine Adolescent Medicine; Visit Provider Podiatrist
DX: S82.54XA Nondisplaced fracture of medial malleolus of right tibia, initial encounter for closed fracture (principal); M25.571 Pain in right ankle and joints of right foot; M25.371 Other instability, right ankle
CPT/HCPCS: 73700

== ENCOUNTER → 2021-05-12 07:36 | Outpatient (CLI) | payer OTHER, SELFPAY ==
[2021-05-12 09:43] LABS: HCG,Quantitative < 2 mIU/ml (0-5.42)
== END ==
PROVIDERS: Visit Provider Nurse Practitioner Obstetrics & Gynecology
DX: Z34.90 Encounter for supervision of normal pregnancy, unspecified, unspecified trimester (principal)
CPT/HCPCS: 36415; 84702

== ENCOUNTER → 2021-06-18 02:09 | Outpatient (CLI) | payer OTHER, SELFPAY ==
[2021-06-18 02:24] LABS: Coronavirus 19, PCR Not Detected (NotDetected); Influenza A, PCR Not Detected (NotDetected); Influenza B, PCR Not Detected (NotDetected)
== END ==
PROVIDERS: PCP Internal Medicine Adolescent Medicine; Visit Provider Family Medicine
DX: Z20.822 Contact with and (suspected) exposure to COVID-19 (principal)
CPT/HCPCS: C9803; U0003; U0005

== ENCOUNTER 2021-08-29 09:05 | Emergency (ER) | payer OTHER, SELFPAY ==
[2021-08-29 09:10] VITALS: BP 111/73; PULSE 96; RESP 20; TEMP 36.9; O2SAT 98; BMI 41.8
[2021-08-29 09:43] LABS: UTC Strep Screen (Rapid) Negative (Negative)
[2021-08-29 09:47] LABS: Coronavirus 19, PCR Not Detected (NotDetected); Influenza A, PCR Not Detected (NotDetected); Influenza B, PCR Not Detected (NotDetected)
--- NOTE | 2021-08-29 09:50 | HMH.EDUTC ---
[facility] [place] Impression: COVID-19 virus test result unknown Maxillary sinusitis, acute Qualifiers: Recurrence: non-recurrent Qualified Code(s): J01.00 - Acute maxillary sinusitis, unspecified Disposition: Home, Self-Care Condition on Discharge: Good Instructions: DI for Sinusitis Additional Instructions: covid swab was sent to lab, call later today for results. self isolate until test results are known to be negative Start antibiotic patient to take as ordered for a full length of time even if you feel better. Sinus infections do not get better overnight. It may take 2-3 days to notice much improvement so be sure to use conservative measures as discussed for symptoms. Flonase 1 spray each nostril daily to help with nasal congestion, sinus and ear pressure/information Increase fluids Humidifier/vaporizer as needed Tylenol and ibuprofen as needed for fever or pain. If symptoms do not improve or get worse return or be seen in the ER Follow-up with primary care this week Prescriptions: predniSONE [Prednisone 20mg Tab] 20 mg PO BID #10 tab Prescription Printed Azithromycin [Zithromax 250mg tab] 250 mg PO DIRECTED #6 tab Prescription Printed Referrals: Braden Ivan MD [Primary Care Provider] - Time of Disposition: 10:00 Medical Decision Making - Sigifredo Inquiry Pt receiving controlled substance: No Vital Signs: 08/29/21 09:10 Temperature 98.4 F Temperature Source Oral Pulse Rate [Right Brachial] 96 H Respiratory Rate 20 Blood Pressure [Right Arm] 111/73 Blood Pressure Mean [Right Arm] 85 Blood Pressure Source [Right Arm] Automatic Cuff Blood Pressure Position [Right Arm] Sitting 02 Sat by Pulse Oximetry 98 Oxygen Delivery Method Room Air - Lab Data Lab Results 08/29/21 09:28: Strep Scn Rapid Clinic Negative Orders (Tests/Meds): ORDERS Category Date Time Status Rapid PCR Covid and Flu A/B Stat Lab 08/29/21 09:20 Received Strep Screen Confirmation Stat Micro 08/29/21 09:28 [place] [facility] [place] - General Chief complaint: [facility] Stated complaint: covid symptoms Time Seen by Provider: 08/29/21 09:50 Mode of Arrival: Ambulatory Source of Information: Patient Limitations: No Limitations Description of Symptoms (Recalled from Triage Doc. by RN): PATIENT C/O SORE THROAT, COUGH, CONGESTION, HEADACHE, SINUS DRAINAGE AND CHILLS SINCE YESTERDAY HEENT Symptoms (Recalled from RN notes): Yes Resp Symptoms (Recalled from RN notes): Yes Skin Symptoms (Recalled from RN notes): No MS Symptoms (Recalled from RN notes): No Functional Status (Recalled from RN notes): WNL - History of Present Illness Provider Complaint: 26 yr old female presents for sore throat,cough, dark yellow congestion, headache, sinus drainage and chills. - Related Data Home Medications Medication Instructions Recorded Confirmed escitalopram oxalate 20 mg tablet 20 mg PO DAILY 30 Days tab 09/14/18 08/29/21 Previous Rx's Medication Instructions Recorded Azithromycin [Zithromax 250mg 250 mg PO DIRECTED #6 tab 08/29/21 tab] predniSONE [Prednisone 20mg 20 mg PO BID #10 tab 08/29/21 Tab] Allergies Allergy/AdvReac Type Severity Reaction Status Date / Time No Known Allergies Allergy Verified 08/09/21 09:56 - Worker's Comp Is this a Worker's Comp case?: No [facility] History - Hepatitis A Screen Drug use history?: No High risk sexual behaviors?: No History of sexually transmitted infection?: No Currently employed?: No Childcare worker?: No Do you have indoor plumbing?: Yes Do you have electricity?: Yes Attestation statement:: This patient has been screened for Hepatitis A risk factors. I have reviewed the patient's past medical history: Yes Medical History: Reports:: Anxiety Denies:: Cancer, Diabetes Mellitus Type 1, Diabetes Mellitus Type 2, Internal Pacemaker, MRSA, Seizures Other Medical History: Denies: Blood Transfusion Reaction Othe
[2021-08-29 10:00] VITALS: BP 111/73; PULSE 96; RESP 20; TEMP 36.9; O2SAT 98
== END 2021-08-29 10:20 | disposition home or self-care (01) ==
PROVIDERS: Nurse Practitioner; Emergency Provider Nurse Practitioner Family; PCP Internal Medicine Adolescent Medicine
DX: J01.00 Acute maxillary sinusitis, unspecified (principal); F41.9 Anxiety disorder, unspecified; Z20.822 Contact with and (suspected) exposure to COVID-19
CPT/HCPCS: 87880; 99203; C9803; G0463; U0003; U0005

== ENCOUNTER 2021-11-07 14:40 | Emergency (ER) | payer OTHER, SELFPAY ==
[2021-11-07 14:45] VITALS: BP 114/67; PULSE 125; RESP 21; TEMP 38; O2SAT 98; BMI 43.4
[2021-11-07 15:03] LABS: UTC Influenza A Antigen Negative (Negative); UTC Influenza B Antigen Negative (Negative); UTC Strep Screen (Rapid) Negative (Negative)
--- NOTE | 2021-11-07 15:04 | HMH.EDUTC ---
[facility] [place]: Upper respiratory infection, viral Disposition: Home, Self-Care Condition on Discharge: Good Instructions: DI for Viral Upper Respiratory Infection -- Adult Additional Instructions: covid swab was sent to lab, call tomorrow for results. self isolate until test results are known to be negative No sign of a bacterial infection. Likely viral. Viruses can take 7-14 days to run their course. Nasal saline and bulb syringe or nose Pamela to remove nasal drainage to help with nasal congestion. Hard to eat, drink, sleep with nasal congestion so important to keep this cleaned out. Monitor temp. Tylenol or Motrin as needed for pain or fever Encourage fluids, water, Gatorade, Powerade, Pedialyte if /toddler/child Warm salt water gargles Warm fluids Sore throat lozenges Sleep elevated Humidifier/vaporizer Follow-up immediately for new or worsening symptoms or no noticeable improvement over the next 48-72 hours. Referrals: Braden Ivan MD [Primary Care Provider] - Time of Disposition: 15:07 Medical Decision Making - Sigifredo Inquiry Pt receiving controlled substance: No Vital Signs: 11/07/21 14:45 Temperature 100.4 F H Temperature Source Oral Pulse Rate [Left Brachial] 125 H Respiratory Rate 21 Blood Pressure [Left Arm] 114/67 Blood Pressure Mean [Left Arm] 82 Blood Pressure Source [Left Arm] Automatic Cuff Blood Pressure Position [Left Arm] Sitting 02 Sat by Pulse Oximetry 98 Oxygen Delivery Method Room Air - Lab Data Lab Results 11/07/21 14:48: Influenza Type A Ag Negative, Influenza Type B Ag Negative 11/07/21 14:48: Strep Scn Rapid Clinic Negative Orders (Tests/Meds): ORDERS Category Date Time Status Covid-19 Nasal PCR ([facility]) Routine Lab 11/07/21 15:04 Ordered Strep Screen Confirmation Stat Micro 11/07/21 14:48 [place] [facility] [place] - General Chief complaint: Urgent Treatment Center Stated complaint: cough, h/a, fever, congestion, dizzy Time Seen by Provider: 11/07/21 15:04 Mode of Arrival: Ambulatory Source of Information: Patient Limitations: No Limitations Description of Symptoms (Recalled from Triage Doc. by RN): PATIENT C/O HEADACHE, CHILLS, DIZZINESS, SORE THROAT, COUGH AND SINUS DRAINAGE SINCE YESTERDAY HEENT Symptoms (Recalled from RN notes): Yes Resp Symptoms (Recalled from RN notes): Yes Skin Symptoms (Recalled from RN notes): No MS Symptoms (Recalled from RN notes): No Functional Status (Recalled from RN notes): WNL - History of Present Illness Provider Complaint: 26 yr old female presents for chills,headache,nasal congestion, and sore throat - Related Data Allergies Allergy/AdvReac Type Severity Reaction Status Date / Time No Known Allergies Allergy Verified 08/09/21 09:56 - Worker's Comp Is this a Worker's Comp case?: No [facility] History - Hepatitis A Screen Drug use history?: No High risk sexual behaviors?: No History of sexually transmitted infection?: No Currently employed?: No Childcare worker?: No Do you have indoor plumbing?: Yes Do you have electricity?: Yes Attestation statement:: This patient has been screened for Hepatitis A risk factors. I have reviewed the patient's past medical history: Yes Medical History: Reports:: Anxiety Denies:: Cancer, Diabetes Mellitus Type 1, Diabetes Mellitus Type 2, Internal Pacemaker, MRSA, Seizures Other Medical History: Denies: Blood Transfusion Reaction Other Surgeries: Yes: No Previous Surgery, Other. No: Pacemaker Amputation: No Fractures: No Comment: Right Ankle 2019, R tendon repair 2020 - Social History Smoking Status: Never smoker Alcohol Intake: never Substance Use Type: denies use Occupational Status: employed Housing: house Household Members: spouse - Psychiatric History Pschychiatric History:: Reports:: Anxiety Family Hx:: No significant family history ROS Obtained: Yes Systems reviewed as appropriate & no additional complaints - Constitutional
[2021-11-07 15:07] VITALS: BP 114/67; PULSE 125; RESP 21; TEMP 38; O2SAT 98
== END 2021-11-07 15:12 | disposition home or self-care (01) ==
PROVIDERS: Emergency Provider Nurse Practitioner Family; PCP Internal Medicine Adolescent Medicine
DX: J06.9 Acute upper respiratory infection, unspecified (principal); R42 Dizziness and giddiness; F41.9 Anxiety disorder, unspecified; Z20.822 Contact with and (suspected) exposure to COVID-19
CPT/HCPCS: 87804; 87880; 99213; C9803; G0463; U0003; U0005

== ENCOUNTER → 2022-01-10 10:34 | Outpatient (CLI) | payer OTHER, SELFPAY ==
[2022-01-10 12:12] LABS: HCG,Quantitative 12552 mIU/ml (0-5.42)
== END ==
PROVIDERS: PCP Internal Medicine Adolescent Medicine; Visit Provider Nurse Practitioner Obstetrics & Gynecology
DX: N92.6 Irregular menstruation, unspecified (principal)
CPT/HCPCS: 36415; 84702

== ENCOUNTER → 2022-01-11 18:36 | Outpatient (CLI) | payer OTHER, SELFPAY ==
[2022-01-11 18:47] LABS: Coronavirus 19, PCR Not Detected (NotDetected); Influenza A, PCR Not Detected (NotDetected); Influenza B, PCR Not Detected (NotDetected)
== END ==
PROVIDERS: PCP Internal Medicine Adolescent Medicine; Visit Provider Nurse Practitioner Obstetrics & Gynecology
DX: Z11.52 Encounter for screening for COVID-19 (principal); J02.9 Acute pharyngitis, unspecified; R05.8 Other specified cough
CPT/HCPCS: C9803; U0003; U0005

== ENCOUNTER 2022-01-12 10:03 | Emergency (ER) | payer OTHER, SELFPAY ==
[2022-01-12 10:55] VITALS: BP 120/80; PULSE 102; RESP 16; TEMP 36.6; O2SAT 99; BMI 43.4
--- NOTE | 2022-01-12 11:06 | HMH.EDUTC ---
[facility] [place] Clinical Impression: Bronchitis Pharyngitis Qualifiers: Pharyngitis/tonsillitis etiology: unspecified etiology Qualified Code(s): J02.9 - Acute pharyngitis, unspecified Disposition: Home, Self-Care Condition on Discharge: Good Instructions: Sore Throat, DI for Pharyngitis/Tonsillopharyngitis -- Adult, DI for Acute Bronchitis Additional Instructions: Drink plenty of fluids. Take tylenol or ibuprofen for pain or fever. Take the medications as directed. Follow up with your regular doctor. GO TO THE ER FOR ANY WORSENING SYMPTOMS Prescriptions: Azithromycin [Z-Harlan 250mg Tab*] 250 mg PO UD DOSE PK #6 tab Transmission Status: Received by [facility] [employer] Referrals: Braden Ivan MD [Primary Care Provider] - Time of Disposition: 11:20 Medical Decision Making - Medical Records Medical records reviewed: No: I reviewed the patient's medical records. - Sigifredo Inquiry Pt receiving controlled substance: No Vital Signs: 01/12/22 10:55 01/12/22 11:21 Temperature 97.9 F 97.9 F Temperature Source Oral Pulse Rate 90 Pulse Rate [Radial] 102 H Respiratory Rate 16 16 Blood Pressure 120/80 Blood Pressure [Right Arm] 120/80 Blood Pressure Mean [Right Arm] 93 02 Sat by Pulse Oximetry 99 - Lab Data Lab results reviewed: Yes: I reviewed the patient's lab results. Lab Results 01/12/22 10:55: Group A Strep Rapid Negative Orders (Tests/Meds): ORDERS Category Date Time Status Strep Screen Confirmation Stat Micro 01/12/22 10:55 Received [facility] [place] - General Stated complaint: cough, congestion, sore throat Time Seen by Provider: 01/12/22 11:06 Mode of Arrival: Ambulatory Source of Information: Patient Limitations: No Limitations Description of Symptoms (Recalled from Triage Doc. by RN): pt c/o cough, congestion. flu and covid test yesterday were negative HEENT Symptoms (Recalled from RN notes): Yes Resp Symptoms (Recalled from RN notes): Yes Skin Symptoms (Recalled from RN notes): No MS Symptoms (Recalled from RN notes): No Functional Status (Recalled from RN notes): wnl - History of Present Illness Provider Complaint: She c/o sore throat and chest congestion with a productive cough for the past 3 days. - Related Data Previous Rx's Medication Instructions Recorded Azithromycin [Z-Harlan 250mg Tab*] 250 mg PO UD DOSE PK #6 tab 01/12/22 Allergies Allergy/AdvReac Type Severity Reaction Status Date / Time No Known Allergies Allergy Verified 01/12/22 10:57 - Worker's Comp Is this a Worker's Comp case?: No [facility] History - Hepatitis A Screen Attestation statement:: This patient has been screened for Hepatitis A risk factors. I have reviewed the patient's past medical history: Yes Medical History: Reports:: Anxiety Denies:: Cancer, Diabetes Mellitus Type 1, Diabetes Mellitus Type 2, Internal Pacemaker, MRSA, Seizures Other Medical History: Denies: Blood Transfusion Reaction Other Surgeries: Yes: No Previous Surgery, Other. No: Pacemaker Amputation: No Fractures: No Comment: Right Ankle 2019, R tendon repair 2020 - Social History Smoking Status: Never smoker Alcohol Intake: never Substance Use Type: denies use Occupational Status: employed Housing: house Household Members: spouse - Psychiatric History Pschychiatric History:: Reports:: Anxiety Family Hx:: No significant family history ROS Obtained: Yes All systems reviewed & no additional complaints - Constitutional Constitutional: Reports as per HPI - Eyes Eyes: Denies eye discharge - ENT Ears, Nose, Mouth, and Throat: Reports as per HPI - Cardiovascular Cardiovascular: Denies chest pain - Respiratory Respiratory: Reports chest congestion, Reports cough Physical Exam - General General appearance: alert, in no apparent distress - Head Head exam: atraumatic, normocephalic, normal inspection - Eye Eye exam: Present: normal appearance, PERRL, EOMI - ENT ENT
[2022-01-12 11:10] LABS: Strep Scrn Group A (Rapid) Negative (Negative)
[2022-01-12 11:21] VITALS: BP 120/80; PULSE 90; RESP 16; TEMP 36.6
== END 2022-01-12 11:23 | disposition home or self-care (01) ==
PROVIDERS: Emergency Provider Nurse Practitioner Family; PCP Internal Medicine Adolescent Medicine
DX: J20.9 Acute bronchitis, unspecified (principal); J02.9 Acute pharyngitis, unspecified; F41.9 Anxiety disorder, unspecified
CPT/HCPCS: 87430; 99212; G0463

== ENCOUNTER → 2022-02-04 11:51 | Outpatient (CLI) | payer OTHER, SELFPAY ==
[2022-02-04 12:20] LABS: Basophils % 0.4 % (0.1-2.0); Eosinophils # 0.2 K/mm3 (0.0-0.4); Eosinophils % 2.2 % (0.1-12.0); Hematocrit 32.8 % (37.0-47.0); Hemoglobin 13.1 g/dL (12.2-16.2); Lymphocytes # 1.9 K/mm3 (0.7-4.5); Lymphocytes % 23.4 % (10-50); Mean Corpuscular Hemoglobin 35.1 pg (27.0-31.2); Mean Corpuscular Volume 87.8 fl (81-99); Monocytes # 0.4 K/mm3 (0.1-1.0); Monocytes % 5.2 % (1.7-9.3); Neutrophils # 5.5 K/mm3 (1.8-7.8); Neutrophils % 68.9 % (37.0-80.0); Platelet Count 255 K/mm3 (142-424); Red Blood Count 3.74 M/mm3 (4.20-5.40); Red Cell Distribution Width 13.6 % (11.5-17.5)
[2022-02-05 06:12] LABS: HIV Screen 4th Generation wRfx Non Reactive (Non Reactive); Hepatitis B Surface Antigen Negative (Negative); Hepatitis C Antibody <0.1 s/co ratio (0.0-0.9)
[2022-02-05 07:22] LABS: Rubella Antibodies, IgG 9.53 index (Immune >0.99)
[2022-02-05 11:12] LABS: Rapid Plasma Reagin Ab Titer Non Reactive (NonRea<1:1)
[2022-02-07 21:12] LABS: Neisseria gonorrhoeae, NAA Negative (Negative)
== END ==
PROVIDERS: PCP Internal Medicine Adolescent Medicine; Visit Provider Obstetrics & Gynecology
DX: Z34.90 Encounter for supervision of normal pregnancy, unspecified, unspecified trimester (principal)
CPT/HCPCS: 36415; 85025; 86592; 86703; 86762; 86850; 87340; 87380; 87491; 87591; G0432

== ENCOUNTER → 2022-02-24 08:03 | Outpatient (CLI) | payer OTHER, SELFPAY | PROVIDERS: PCP Internal Medicine Adolescent Medicine; Visit Provider Obstetrics & Gynecology | DX: Z31.430 Encounter of female for testing for genetic disease carrier status for procreative management (principal); Z36.0 Encounter for antenatal screening for chromosomal anomalies; O28.3 Abnormal ultrasonic finding on antenatal screening of mother | CPT/HCPCS: 36415 ==

== ENCOUNTER → 2022-04-22 12:58 | Outpatient (CLI) | payer OTHER, SELFPAY ==
--- NOTE | 2022-04-22 12:59 | US_ITS ---
FINAL REPORT CLINICAL HISTORY: 20 week anatomy scan FINDINGS: There is a single live intrauterine gestation. Presentation is breech. The cervix is closed and measures 4.2 cm. Placenta is anterior and grade 1. Cardiac activity is confirmed. The fetus is active. Three-vessel cord with satisfactory umbilical cord insertion. Four-chamber heart is noted. brain and ventricles are unremarkable. Chest and diaphragm are unremarkable. ABDOMEN: Both kidneys are unremarkable. Stomach is unremarkable. SPINE: No anomalies identified. Both arms and legs noted. AMNIOTIC FLUID: Appropriate amount. MEASUREMENTS: ULTRASOUND AGE: 20 weeks 2 days. GESTATION AGE: 20 weeks 2 days. ESTIMATED WEIGHT: 334 g GROWTH PERCENTILE: 36% BPD: 4.8 cm consistent with 20 weeks 4 days. OFD: 6.1 cm consistent with 20 weeks 4 days. HC: 17.2 cm consistent with 19 weeks 6 days. AC: 14.9 cm consistent with 20 weeks 1 days. FL: 3.3 cm consistent with 20 weeks 2 days. CEREBELLUM: 2.0 cm consistent with 20 weeks 1 days. HUMERUS: 3.1 cm consistent with 20 weeks 2 days. HC/AC: 1.16 CI: 79% FL/BPD: 68% FL/AC: 22% IMPRESSION: Single living IUP with an ultrasound age of 20 weeks 2 days. Reviewed, Interpreted and Dictated by Brayan Downey III, MD Transcribed by Sylvain Villa Authenticated and [facility]
== END ==
PROVIDERS: PCP Internal Medicine Adolescent Medicine; Visit Provider Obstetrics & Gynecology
DX: Z34.90 Encounter for supervision of normal pregnancy, unspecified, unspecified trimester (principal); Z3A.20 20 weeks gestation of pregnancy
CPT/HCPCS: 76811

== ENCOUNTER → 2022-06-06 07:54 | Outpatient (CLI) | payer OTHER, SELFPAY ==
[2022-06-06 08:23] LABS: Basophils # 0.1 K/mm3 (0-0.2); Basophils % 0.7 % (0.1-2.0); Eosinophils # 0.2 K/mm3 (0.0-0.4); Eosinophils % 2.2 % (0.1-12.0); Hematocrit 36.2 % (37.0-47.0); Hemoglobin 12.1 g/dL (12.2-16.2); Lymphocytes # 2.3 K/mm3 (0.7-4.5); Lymphocytes % 20.7 % (10-50); Mean Corpuscular HGB Conc 33.5 g/dL (31.8-35.4); Mean Corpuscular Hemoglobin 30.8 pg (27.0-31.2); Mean Corpuscular Volume 91.9 fl (81-99); Monocytes # 0.5 K/mm3 (0.1-1.0); Monocytes % 4.9 % (1.7-9.3); Neutrophils # 7.8 K/mm3 (1.8-7.8); Neutrophils % 71.6 % (37.0-80.0); Platelet Count 278 K/mm3 (142-424); Red Blood Count 3.94 M/mm3 (4.20-5.40); Red Cell Distribution Width 15.1 % (11.5-17.5)
[2022-06-06 08:42] LABS: Glucose,Fasting 99 mg/dl (74-100)
[2022-06-06 10:04] LABS: Glucose 1 Hour 167 mg/dL (74-100)
== END ==
PROVIDERS: PCP Internal Medicine Adolescent Medicine; Visit Provider Obstetrics & Gynecology
DX: Z34.90 Encounter for supervision of normal pregnancy, unspecified, unspecified trimester (principal); Z3A.24 24 weeks gestation of pregnancy
CPT/HCPCS: 36415; 82951; 85025

== ENCOUNTER → 2022-06-09 07:20 | Outpatient (CLI) | payer OTHER, SELFPAY ==
[2022-06-09 07:58] LABS: Glucose,Fasting 98 mg/dl (74-100)
[2022-06-09 12:41] LABS: Glucose 1 Hour 147 mg/dL (74-100); Glucose 2 Hour 171 mg/dL (74-100)
[2022-06-09 12:42] LABS: Glucose 3 Hour 137 mg/dL (74-100)
== END ==
PROVIDERS: PCP Internal Medicine Adolescent Medicine; Visit Provider Obstetrics & Gynecology
DX: Z34.90 Encounter for supervision of normal pregnancy, unspecified, unspecified trimester (principal); Z3A.24 24 weeks gestation of pregnancy
CPT/HCPCS: 36415; 82951

== ENCOUNTER → 2022-06-14 10:24 | Outpatient (POV) | payer OTHER, SELFPAY | PROVIDERS: Visit Provider Dermatology | DX: Z00.00 Encounter for general adult medical examination without abnormal findings (principal) ==

== ENCOUNTER → 2022-07-10 22:33 | Outpatient (CLI) | payer OTHER, SELFPAY ==
[2022-07-10 22:47] LABS: Coronavirus 19, PCR Not Detected (NotDetected); Influenza A, PCR Not Detected (NotDetected); Influenza B, PCR Not Detected (NotDetected)
== END ==
PROVIDERS: PCP Internal Medicine Adolescent Medicine; Visit Provider Family Medicine
DX: Z20.822 Contact with and (suspected) exposure to COVID-19 (principal); R05.9 Cough, unspecified; R09.89 Other specified symptoms and signs involving the circulatory and respiratory systems; R52 Pain, unspecified
CPT/HCPCS: C9803; U0003; U0005

== ENCOUNTER 2022-07-13 08:00 | Emergency (ER) | payer OTHER, SELFPAY ==
--- NOTE | 2022-07-13 08:27 | EXP.UTC ---
Discharge Plan Disposition Patient Disposition: Home, Self-Care Condition: Good Prescriptions Prescriptions: New azithromycin [Zithromax] 250 mg tablet 250 mg PO UD DOSE PK Qty: 6 0RF Rx Instructions: Take two (2) tablets today, then one (1) tablet days #2 thru #5 No Action prenat.vits,debbie,[id number] Tablet 1 tab PO DAILY albuterol sulfate [ProAir HFA] 90 mcg/actuation HFA aerosol inhaler 2 puff IH Q6H PRN (Reason: shortness of breath or wheezing) Qty: 8.5 2RF buspirone 5 mg tablet 5 mg PO BID Qty: 60 2RF Adacel(Tdap Adolesn/Adult)(PF) 2 Lf-(2.5-5-3-5 mcg)-5Lf/0.5 mL syringe 0.5 ml IM ONCE Qty: 0.5 0RF ondansetron 4 mg tablet,disintegrating 4 mg PO Q8H PRN (Reason: nausea and vomiting) Qty: 20 2RF escitalopram oxalate [Lexapro] 10 mg tablet 10 mg PO DAILY Qty: 30 6RF (DME) blood-glucose meter [Accu-Chek Guide Glucose Meter] Misc See Rx Instructions .Route Qty: 1 0RF Rx Instructions: As directed (DME) Accu-Chek Guide test strips Strip See Rx Instructions .Route Qty: 100 3RF Rx Instructions: As directed (DME) Acti-Rhett Lancets 23 gauge misc See Rx Instructions .Route Qty: 200 3RF Rx Instructions: As directed Referrals Follow up/Referrals: Braden Ivan MD [Primary Care Provider] - See instructions Activity Restrictions/Add. Instructions Additional Instructions/Restrictions: Drink plenty of fluids. Take tylenol for pain or fever. Take the medications as directed. Follow up with your regular doctor. GO TO THE ER FOR ANY WORSENING SYMPTOMS Clinical Impressions Clinical Impression: Bronchitis Stand Alone Forms Stand Alone Forms: Work/School Release Instructions Patient Instructions: DI for Acute Bronchitis, DI for Viral Syndrome Discharge ED Provider: Luis Angel Cleary [facility] [place] HPI General Stated complaint: cough, chest congestion, drainage Time Seen by Provider: 07/13/22 08:25 History of Present Illness Provider Complaint: She states that for the past 2 days she has had a cough, chest congestion, scratchy sore throat and she has felt bad. Related Data Home Medications Medication Instructions Recorded Confirmed prenat.vits,debbie,vlf-[id number] 1 tab PO DAILY 02/04/22 07/07/22 Previous Rx's Medication Instructions Recorded ondansetron 4 mg disintegrating 4 mg PO Q8H PRN nausea and 03/03/22 tablet vomiting #20 tabs albuterol sulfate 90 mcg/actuation 2 puff inhalation Q6H PRN 04/26/22 aerosol inhaler (ProAir HFA) shortness of breath or wheezing #8.5 grams buspirone 5 mg tablet 5 mg PO BID #60 tabs 05/23/22 escitalopram oxalate 10 mg tablet 10 mg PO DAILY #30 tabs 06/06/22 (Lexapro) blood sugar diagnostic (Accu-Chek #100 ea 06/09/22 Guide test strips) blood-glucose meter (Accu-Chek #1 ea 06/09/22 Guide Glucose Meter) lancets 23 gauge (Acti-Rhett #200 ea 06/09/22 Lancets) azithromycin 250 mg tablet 250 mg PO UD DOSE PK #6 tabs 07/13/22 (Zithromax) Allergies Allergy/AdvReac Type Severity Reaction Status Date / Time No Known Allergies Allergy Verified 07/13/22 08:34 [facility] Medical History Gestational diabetes Social History Smoking Status: Never smoker alcohol intake: never substance use type: denies use current occupational status: employed Travel in the last 8 weeks: None household members: spouse housing: house current occupation: [employer] current occupational exposures/hazards: No caffeine: No ROS Obtained: Yes All systems reviewed & no additional complaints except as documented Constitutional Constitutional: Denies chills and Denies fever(s) Eyes Eyes: Denies eye discharge ENT Ears, Nose, Mouth, and Throat: Reports as per HPI Cardiovascular Cardiovascular: Denies chest pain Respiratory Respiratory: Denies chest congestion and Rep
[2022-07-13 08:32] VITALS: BP 138/76; PULSE 114; RESP 16; TEMP 36.8; O2SAT 97; BMI 43.8
[2022-07-13 08:33] LABS: UTC Strep Screen (Rapid) Negative (Negative)
[2022-07-13 09:00] VITALS: BP 138/76; PULSE 114; RESP 16; TEMP 36.8
[2022-07-13 09:11] LABS: Adenovirus,PCR Not Detected (NotDetected); Bordetella Pertussis Not Detected (NotDetected); Chlamydophila Pneumoniae, PCR Not Detected (NotDetected); Coronavirus 19, PCR Not Detected (NotDetected); Coronavirus 229E Not Detected (NotDetected); Coronavirus NL63 Not Detected (NotDetected); Coronavirus OC43 Not Detected (NotDetected); Coronovirus HKU1,PCR Not Detected (NotDetected); Human Metapneumovirus Not Detected (NotDetected); Influenza A, PCR Not Detected (NotDetected); Influenza AH1, 2009 Not Detected (NotDetected); Influenza AH1, PCR Not Detected (NotDetected); Influenza AH3,PCR Not Detected (NotDetected); Influenza B, PCR Not Detected (NotDetected); Mycoplasma Pneumoniae, PCR Not Detected (NotDetected); Parainfluenza 1, PCR Not Detected (NotDetected); Parainfluenza 2, PCR Not Detected (NotDetected); Parainfluenza 3, PCR Not Detected (NotDetected); Parainfluenza 4, PCR Not Detected (NotDetected); Respiratory Syncytial Virus Not Detected (NotDetected); Rhinovirus/Enterovirus Not Detected (NotDetected)
== END 2022-07-13 09:00 | disposition home or self-care (01) ==
PROVIDERS: Emergency Provider Nurse Practitioner Family; PCP Internal Medicine Adolescent Medicine
DX: J40 Bronchitis, not specified as acute or chronic (principal)
CPT/HCPCS: 87581; 87632; 87798; 87880; 99212; C9803; G0463; U0003; U0005

== ENCOUNTER 2022-07-19 12:51 | Outpatient (CLI) | payer OTHER, SELFPAY ==
--- NOTE | 2022-07-19 12:51 | US_ITS ---
FINAL REPORT CLINICAL HISTORY: lga FINDINGS: There is a single live intrauterine gestation. Presentation is cephalic. Placenta is anterior grade 2. movement is noted. Cardiac activity noted up to 195 beats per minute. Physician was notified. Amniotic fluid index is 13.08. Visualized anatomy is within normal limits. MEASUREMENTS: ULTRASOUND AGE: 33 weeks 6 days. GESTATION AGE: 32 weeks 3 days. ESTIMATED WEIGHT: 2198 g GROWTH PERCENTILE: 72 % BPD: 8.56 cm corresponding to 34 weeks 4 days. OFD: 11.01 cm corresponding to 35 weeks 4 days. HC: 30.98 cm corresponding to 34 weeks 5 days. AC: 29.92 cm corresponding to 34 weeks 0 days. FL: 6.14 cm corresponding to 32 weeks 0 days. HC/AC: 1.04 CI: 78% FL/BPD: 72% FL/AC: 21% IMPRESSION: Single living IUP with an ultrasound age of 33 weeks 6 days. Cardiac activity noted up to 195 beats per minute. Physician was notified. Reviewed, Interpreted and Dictated by Cliff Khan MD Transcribed by Josie Ocampo Authenticated and . [facility]
[2022-07-19 14:57] VITALS: BP 143/65; PULSE 114; RESP 17; TEMP 36.8; O2SAT 97; BMI 45.0
== END 2022-07-19 15:15 | disposition home or self-care (01) ==
LOC: RAD 13:47 → OB 13:50
PROVIDERS: PCP Internal Medicine Adolescent Medicine; Visit Provider Obstetrics & Gynecology
DX: O36.60X0 Maternal care for excessive fetal growth, unspecified trimester, not applicable or unspecified (principal)
CPT/HCPCS: 59025; 76816; G0463

== ENCOUNTER 2022-07-28 07:17 | Outpatient (CLI) | payer OTHER, SELFPAY ==
[2022-07-28 07:46] VITALS: BP 131/72; PULSE 107; RESP 18; TEMP 36.7; O2SAT 98; BMI 44.0
== END 2022-07-28 08:03 | disposition home or self-care (01) ==
LOC: OBOUT 07:18 → OB 07:19
PROVIDERS: PCP Internal Medicine Adolescent Medicine; Visit Provider Nurse Practitioner Obstetrics & Gynecology
DX: O26.893 Other specified pregnancy related conditions, third trimester (principal); Z3A.33 33 weeks gestation of pregnancy
CPT/HCPCS: 59025; G0463

== ENCOUNTER 2022-08-12 11:49 | Inpatient (IN) | payer OTHER, SELFPAY ==
[2022-08-12 12:10] VITALS: BP 137/95; PULSE 107; RESP 18; TEMP 36.2; O2SAT 100; BMI 46.2
[2022-08-12 12:24] VITALS: BMI 46.2
[2022-08-12 12:40] LABS: Microscopic, Urine URINE MICROSCOPIC (MICROSCOPIC)
[2022-08-12 12:43] LABS: Fetal Membrane Rupture (Rapid) Positive (Negative)
[2022-08-12 12:43] LABS: Appearance,Urine CLEAR (Clear); Bilirubin,Urine Negative (Negative); Blood, Urine Negative (Negative); Color,Urine YELLOW (Yellow); Glucose,Urine (UA) Negative (Negative); Ketones,Urine 1+ (Negative); Leukocyte Esterase,Urine Negative (Negative); Nitrate,Urine Negative (Negative); PH,Urine 6.5 (5.0-8.5); Protein,Urine Negative (Negative); Specific Gravity, Urine 1.015 (1.005-1.030); Urobilinogen,Urine 0.2 EU/dl (0.2)
[2022-08-12 12:52] LABS: RBC,Urine Occasional #/hpf (0-3); Squamous Epithelial Cell,Urine Occasional #/hpf (0-5)
[2022-08-12 12:54] LABS: Barbiturates Screen,Urine Negative ng/ml (<200)
[2022-08-12 12:55] LABS: Benzodiazepines Screen,Urine Negative ng/ml (<200)
[2022-08-12 12:56] LABS: Amphetamine/Metha Screen,Urine Negative ng/ml (<1000); Cannabinoid Screen,Urine Negative ng/ml (<50)
[2022-08-12 12:57] LABS: Cocaine Screen,Urine Negative ng/ml (<300); Methadone Screen,Urine Negative ng/ml (<300)
[2022-08-12 12:58] LABS: Opiate Screen,Urine Negative ng/ml (<300)
[2022-08-12 12:59] LABS: Phencyclidine Screen,Urine Negative ng/ml (<25)
[2022-08-12 13:34] LABS: Coronavirus 19, PCR Not Detected (NotDetected); Influenza A, PCR Not Detected (NotDetected); Influenza B, PCR Not Detected (NotDetected)
[2022-08-12 13:54] LABS: Chloride 108 mmol/L (98-107)
[2022-08-12 13:55] LABS: Potassium 4.5 mmoL/L (3.5-5.1); Sodium 136 mmol/L (136-145)
[2022-08-12 13:57] LABS: Alanine Aminotransferase 25 U/L (12-78); Albumin Level 3.5 g/dl (3.5-5.0); Albumin/Globulin Ratio 1.2 (1.1-1.8); Alkaline Phosphatase 174 U/L (38-126); Anion Gap 14.5 mEq/L (5-15); Aspartate Amino Transferase 41 U/L (14-36); Bilirubin,Total 0.4 mg/dl (0.2-1.3); Blood Urea Nitrogen 7 mg/dl (7-17); Carbon Dioxide 18 mmol/L (22.0-30.0); Creatinine Clearance Estimated 98 mL/min (50-200); Estimated Glomerular Filt Rate 122 ml/min (>60); GFR (African American) 147 ML/MIN (>60); Globulin 2.9 g/dL (1.3-3.2); Total Protein,Serum 6.4 g/dl (6.3-8.2)
[2022-08-12 13:58] LABS: Calcium 9.9 mg/dl (8.4-10.2)
[2022-08-12 14:07] LABS: Basophils % 0.3 % (0.1-2.0); Eosinophils # 0.2 K/mm3 (0.0-0.4); Eosinophils % 1.7 % (0.1-12.0); Glucose 50 mg/dl (74-100); Hematocrit 41.2 % (37.0-47.0); Hemoglobin 13.5 g/dL (12.2-16.2); Lymphocytes % 16.1 % (10-50); Mean Corpuscular HGB Conc 32.8 g/dL (31.8-35.4); Mean Corpuscular Hemoglobin 29.9 pg (27.0-31.2); Mean Corpuscular Volume 91.1 fl (81-99); Mean Platelet Volume 10.4 fl (7.4-10.4); Monocytes # 0.8 K/mm3 (0.1-1.0); Monocytes % 6.1 % (1.7-9.3); Neutrophils # 9.5 K/mm3 (1.8-7.8); Neutrophils % 75.8 % (37.0-80.0); Platelet Count 270 K/mm3 (142-424); Red Blood Count 4.52 M/mm3 (4.20-5.40); Red Cell Distribution Width 15.6 % (11.5-17.5); White Blood Count 12.5 K/mm3 (4.8-10.8)
--- NOTE | 2022-08-12 14:09 | P.CONPHA_ITS ---
Pharmacy Intervention Comments: MEDICATION RECONCILIATION COMPLETED ON PATIENT USING EXTERNAL FILL HISTORY FROM PHARMACY AND LIST FROM ORCHESTRA CONDUCTOR OFFICE. -MINISTERIO FOLEYD
--- NOTE | 2022-08-12 14:09 | HMH.PHAINT1 ---
Pharmacy Intervention Comments: MEDICATION RECONCILIATION COMPLETED ON PATIENT USING EXTERNAL FILL HISTORY FROM PHARMACY AND LIST FROM SILK SCREEN OPERATOR OFFICE. -MINISTERIO FOLEYD
--- NOTE | 2022-08-12 14:10 | EXP.OB.APHP ---
OB - H&P: HPI Antepartum History of Present Illness Chief complaint: Leakage of fluid History of present illness: Mrs Katelyn Malloy is a 27 yo at 35w6d, by LMP and confirmed by first trimester ultrasound, with EDC 09/10/22 who presents to [facility] L&D with complaint of leakage of fluid. She states she had a gush of fluid yesterday morning, 08/12/22, at 0930. No further leakage of fluid until this morning. She states this morning she had two gushes of fluid back to back around 1130. She presented to L&D and Amnisure was positive. Cervical exam was 4/75/-2. Patient states she is terrified of vaginal and perineal tears. She was told in the past that she has a narrow pelvis. Patient's mother had a 4th degree perineal laceration. Patient is requesting an elective . History of Present Criteria for establishing EDC:: LMP confirmed by 1st trimester US care: good care Ultrasounds: normal mid trimester US Obstetrical complications: gestational diabetes Labs Blood type: O (+) positive Rubella: immune RPR/VDRL: nonreactive HBsAG: negative [facility] Disclaimer: The information contained in this section may have been updated after the patient was seen, as this information can be updated by other users. Medical History (Updated 08/12/22 @ 15:34 by Felipa Clark DO) Gestational diabetes premature rupture of membranes (PPROM) with onset of labor within 24 hours of rupture in third trimester, antepartum Social History Smoking Status: Never smoker alcohol intake: never substance use type: denies use current occupational status: employed Travel in the last 8 weeks: None household members: spouse housing: house current occupation: [employer] current occupational exposures/hazards: No caffeine: No Review of Systems Review of Systems Review of systems:: pertinent systems reviewed and negative unless documented below Meds Home Medications and Allergies Home Medications Medication Instructions Recorded Confirmed Type prenat.vits,debbie,ibu-yltq-gdwuo 1 tab PO DAILY Supplement 02/04/22 08/12/22 History albuterol sulfate 90 mcg/actuation 2 puff inhalation Q6HP PRN 08/12/22 08/12/22 History aerosol inhaler (ProAir HFA) shortness of breath or wheezing escitalopram oxalate 10 mg tablet 10 mg PO DAILY MOOD 08/12/22 08/12/22 History (Lexapro) glyburide 5 mg tablet 2.5 mg PO BID Diabetes 08/12/22 08/12/22 History New Prescriptions to Start Prescriptions: Allergies Allergy/AdvReac Type Severity Reaction Status Date / Time No Known Allergies Allergy Verified 08/11/22 10:24 OB - H&P: Exam Constitutional no acute distress Routine HEENT Exam Head: Present normocephalic and atraumatic Eye: Absent conjunctivae pink ENT: Present mucous membranes moist and dentition normal Routine Neck Exam Present full ROM Routine Respiratory Exam Present CTA bilaterally and normal respiratory effort Routine Cardiovascular Exam Present RRR Routine Abdominal Exam Present soft (Gravid); Absent tenderness Routine Rectal Exam Patient deferred: visual exam Routine Exam Patient deferred: external exam Routine Extremities Exam Present edema (+1 bilateral lower extremity edema) and full ROM; Absent calf tenderness Routine Neurological Exam Present alert, oriented X3 and moving all extremities Routine Psychiatric Exam Present normal affect Detailed Labor and Delivery Exam Dilation (cm): 4 Effacement (%): 75 station: -2 Membranes: spontaneously ruptured Amniotic fluid: unevaluable Baseline heart rate: 150 monitor accelerations: Present monitor decelerations: None alf variability: Moderate (11-25) Contraction frequency (min): 1 OB - Results Labs Labs: Short CBC 08/12/22 Range/Units 13:16 WBC 12.5 H (4.8-10.8) K/mm3 Hgb 13.5 (12.2-16.2) g/dL Hct 41.2 (37.0-47.0) % Plt Count 270 (142-4
--- NOTE | 2022-08-12 15:38 | EXP.OP.NOTE ---
Date of procedure: 08/12/22 Pre-op Diagnosis:: 1. IUP at 35w6d 2. PPROM 3. Onset of labor 4. GDMA2 5. Morbid obesity 6. Anxiety Post-op Diagnosis:: 1. IUP at 35w6d 2. PPROM 3. Onset of labor 4. GDMA2 5. Morbid obesity 6. Anxiety Procedure performed:: Primary low transverse section Surgeon:: Felipa Clark DO Medical Donation Professional(s):: Lily Crews MD GLASS ENGRAVER:: Alan Pacheco Anesthesia: spinal Estimated blood loss (mL): 700 Clinical Note:: Mrs Katelyn Malloy is a 27 yo at 35w6d, by LMP and confirmed by first trimester ultrasound, with EDC 09/10/22 who presents to [facility] L&D with complaint of leakage of fluid. She states she had a gush of fluid yesterday morning, 08/12/22, at 0930. No further leakage of fluid until this morning. She states this morning she had two gushes of fluid back to back around 1130. She presented to L&D and Amnisure was positive. Cervical exam was 4/75/-2. Patient states she is terrified of vaginal and perineal tears. She was told in the past that she has a narrow pelvis. Patient's mother had a 4th degree perineal laceration. Patient is requesting an elective . Operative findings:: 1. Live female baby weighing 7 lb 2 oz, APGARs 7, 8 2. Direct OP presentation 3. Grossly normal appearing uterus, bilateral fallopian tubes and bilateral ovaries Operative note:: The risks, benefits and alternatives of the procedure were reviewed with the patient. Informed consent was obtained. Patient was taken to the operating room where epidural was bolused. The patient received 2 grams of Ancef and Azithromycin 500 mg IV preoperatively. Patient was placed in dorsal supine position with a leftward tilt. SCDs in place. Trejo catheter was placed and was draining clear urine prior to the start of the procedure. heart tones were obtained. Patient was then prepped and draped in normal sterile fashion. Vagina was prepped with Betadine swabs x 3. Allis clamp test was performed to ensure adequate anesthesia. A Pfannenstiel skin incision was made 2 cm above pubic symphysis. This was carried through to underlying layer of fascia. Fascia was incised in midline, extended laterally with Robison scissors. Superior aspect of fascial incision was grasped with two Kirk clamps, elevated up, and rectus muscle dissected off bluntly and sharply with Robison scissors. The retcus muscle was then in the midline and the peritoneum was entered bluntly with a digit. Peritoneal incision was then extended superiorly and inferiorly with good visualization of the bladder. Jimmy retractor was inserted. The lower uterine segment was incised in a transverse fashion. Clear amniotic fluid was noted. Head was delivered without difficulty in direct OP position. Remainder of body was delivered without difficulty. Mouth and nares were bulb suctioned. Spontaneous cry was noted. Delayed cord clamping was performed for 60 seconds. The umbilical cord was clamped and cut. The infant was handed to awaiting pediatric staff in stable condition. Dr. Dai was present. Apgars were 7(1 min), 8(5 min). Cord gases were obtained. Cord blood was obtained. Gentle traction on the umbilical cord and uterine fundal massage delivered the placenta. Placenta was intact. Placenta will be sent to pathology for review. Uterus was cleared of all clots and debris with a moist laparotomy sponge. Corners of the uterine incision were grasped with Allis clamps. The uterine incision was reapproximated with # 1 Vicryl suture in a running, locked stitch. Second layer of the same stitch was used to imbricate the incision. Excellent hemostasis was noted. Posterior cul-de-sac was cleaned with moist laparotomy sponge. (Uterus returned to the abdomen)Gutters cleared of all clots and debris with a moist laparotomy sponge. Reinspection of the lower uterine segment demonstrated sexcellent hemostasis. At this point all instruments and sponges were removed from the pelvis.? The peritoneum was grasped with Sima clamps x 3. The
[2022-08-12 15:40] VITALS: BP 125/70; PULSE 88; RESP 14; TEMP 36.2; O2SAT 100
--- NOTE | 2022-08-12 15:41 | EXP.ANES.I ---
[facility] Anesthesia Record Part I Anesthesia Record I Intake, IV Amount: 1,500 Estimated blood loss (mL): 700 Urine output (mL): 300 Blood Pressure: 125/70 SaO2: 100 Pulse Rate: 88 Respiratory Rate: 14 Temperature: 97.1 F Patient is:: Awake Stable to PACU at:: 15:40
[2022-08-12 15:42] VITALS: BP 125/70; PULSE 88; RESP 14; TEMP 36.2; O2SAT 100
--- NOTE | 2022-08-12 15:42 | EXP.ANES.CKL ---
[facility] Disclaimer: The information contained in this section may have been updated after the patient was seen, as this information can be updated by other users. Medical History (Updated 08/12/22 @ 15:34 by Felipa Clark DO) Gestational diabetes premature rupture of membranes (PPROM) with onset of labor within 24 hours of rupture in third trimester, antepartum Social History Smoking Status: Never smoker alcohol intake: never substance use type: denies use current occupational status: employed Travel in the last 8 weeks: None household members: spouse housing: house current occupation: [employer] current occupational exposures/hazards: No caffeine: No [employer] Anesthesia Checklist Patient Identification Patient Identification: Arm Band and Verbal (Name & ) Structural Data Admitted From: Direct Admit Planned Operative Procedure/s: Consent for Planned Operative Procedure(s) Verified: Yes Verified Documents: Surgical Consent Chart Verification Results Verified: CBC Additional verifications Anesthesia Reactions: No Hx Blood Transfusions: No Blood Transfusion Reaction: No Airway Assessment C-Spine Mobility Assessed: Yes TMJ Mobility Assessed: Yes Dentition: Good Dentition Neurological Assessment Level of Consciousness: Awake, Alert and Appropriate Anesthesia Plan Anesthesia Risk discussed: Yes ASA Class: II Anesthesia Type: Spinal
[2022-08-12 15:50] VITALS: BP 129/75; PULSE 86; RESP 14; RESP 16; O2SAT 100
[2022-08-12 15:55] LABS: POC Glucose,Bedside 56 (70-110)
--- NOTE | 2022-08-12 15:56 | SUR.OPER ---
1452- TOB viable female infant. apgars 7/8. cord ph 7.30
[2022-08-12 16:00] VITALS: BP 139/81; PULSE 83; RESP 14; O2SAT 100
[2022-08-12 16:10] VITALS: BP 147/87; PULSE 80; RESP 14; TEMP 36.2; O2SAT 100
--- NOTE | 2022-08-12 16:22 | SUR.PHASEI ---
1609- detailed report called to shellie arshad in OB. 1611- pt left in stable condition with shellie arshad in pt room. Bed in lowest position with side rails up. All VSS. Family at bedside
[2022-08-12 16:36] LABS: Microscopic,Cath URINE MICROSCOPIC (MICROSCOPIC)
[2022-08-12 16:53] LABS: Appearance,Urine/Cath CLEAR (Clear); Bilirubin,Cath Negative (Negative); Blood, Urine/Cath TRACE-I (Negative); Color,Urine/Cath YELLOW (Yellow); Glucose,Urine/Cath (UA) Negative (Negative); Ketones,Urine/Cath 2+ (Negative); Leukocyte Esterase,Cath Negative (Negative); Nitrate,Cath Negative (Negative); Protein,Urine/Cath Negative (Negative); Specific Gravity, Urine/Cath 1.015 (1.005-1.030); Urobilinogen,Cath 0.2 EU/dl (0.2)
[2022-08-12 17:29] LABS: RBC,Urine/Cath Occasional # /hpf (0-3); Squamous Epithelial Ur./Cath Occasional #/hpf (0-5); WBC,Urine/Cath Occasional #/hpf (0-3)
[2022-08-13 08:21] LABS: Basophils % 0.3 % (0.1-2.0); Eosinophils # 0.2 K/mm3 (0.0-0.4); Eosinophils % 1.8 % (0.1-12.0); Hematocrit 31.9 % (37.0-47.0); Lymphocytes # 1.7 K/mm3 (0.7-4.5); Lymphocytes % 12.4 % (10-50); Mean Corpuscular HGB Conc 34.2 g/dL (31.8-35.4); Mean Corpuscular Hemoglobin 31.2 pg (27.0-31.2); Mean Corpuscular Volume 91.3 fl (81-99); Mean Platelet Volume 9.7 fl (7.4-10.4); Monocytes # 0.7 K/mm3 (0.1-1.0); Monocytes % 5.4 % (1.7-9.3); Neutrophils # 10.7 K/mm3 (1.8-7.8); Neutrophils % 80.1 % (37.0-80.0); Platelet Count 207 K/mm3 (142-424); Red Cell Distribution Width 15.7 % (11.5-17.5); White Blood Count 13.4 K/mm3 (4.8-10.8)
[2022-08-13 08:32] LABS: Hemoglobin 10.9 g/dL (12.2-16.2)
[2022-08-13 09:00] VITALS: BP 123/71; PULSE 104; RESP 18; TEMP 36.3; O2SAT 99
[2022-08-13 12:36] VITALS: BMI 44.4
--- NOTE | 2022-08-13 13:13 | EXP.ACUTE.PN ---
Subjective *Date: 08/13/22 *Time: 13:13 Interval history: POD #1/ day #1 S/P primary LTCS @ 35 6/7 admitted with PPROM and active labor Uncomplicated delivery QBL 1109cc, with Hgb today 10.9 (13.5 at admission) She is asymptomatic with acute blood loss anemia, and lochia has been appropriate Blood sugar this am was 131, but this was not fasting (4 hours after eating ice cream) Slight increase in WBC from 12.5 to 13.4 but she was also laboring at time of admission No clinical signs of infection She is feeling well and reports sufficient pain control She is ambulating and voiding without difficulty She is tolerating a regular diet without nausea/vomiting Medical Exam Vital signs and Labs for Last 24 Hours: Vital Signs Temp Pulse Resp BP Pulse Ox 08/13/22 09:00 97.3 F L 104 H 18 123/71 99 Intake and Output 08/13/22 08/13/22 08/13/22 03:59 11:59 19:59 Output Total 800 / 800 Balance -800 / 700 Output: Output, Urine Amount (Catheter) 800 / 800 Trejo 800 / 800 Other: Weight 220 lb Patient Weight 08/14/22 11:59 Weight 220 lb Laboratory Results - last 24 hr 08/12/22 13:16: Blood Type O Positive, Antibody Screen Negative, Crossmatch (AHG) See Detail 08/12/22 14:40: Urine Color Yellow, Urine Appearance Clear, Urine pH 7.0, Ur Specific [place] 1.015, Urine Protein Negative, Urine Glucose (UA) Negative, Urine Ketones 2+, Urine Blood Trace-i, Urine Nitrate Negative, Urine Bilirubin Negative, Urine Urobilinogen 0.2, Ur Leukocyte Esterase Negative, Urine RBC Occasional, Urine WBC Occasional, Ur Squamous Epith Cells Occasional, Urine Bacteria None 08/13/22 07:52: WBC 13.4 H, RBC 3.50 L, Hgb 10.9 L D, Hct 31.9 L, MCV 91.3, MCH 31.2, MCHC 34.2, RDW 15.7, Plt Count 207, MPV 9.7, Neut % (Auto) 80.1 H, Lymph % (Auto) 12.4, [place] % (Auto) 5.4, Eos % (Auto) 1.8, Baso % (Auto) 0.3, Neut # (Auto) 10.7 H, Lymph # (Auto) 1.7, [place] # (Auto) 0.7, Eos # (Auto) 0.2, Baso # (Auto) 0.0 I & O for Labs for Last 24 Hours: Intake & Output 08/11/22 08/12/22 08/13/22 08/14/22 11:59 11:59 11:59 11:59 Intake Total 1500 / 1500 Output Total 800 / 800 Balance 700 / 700 Weight 229 lb 220 lb Comment:: No acute distress Comment:: breathing unlabored Comment:: Regular rate, normal peripheral pulses Comments:: abdomen soft, non-distended Mild tenderness Comment:: uterine fundus firm below umbilicus Comment:: 1+ edema bilateral lower extremities Comment:: Incision dry/intact Assessment and Plan *Assessment and plan (1) 35 weeks gestation of : Status: Acute Category: Medical Code(s): Z3A.35 - 35 weeks gestation of (2) premature rupture of membranes (PPROM) with onset of labor within 24 hours of rupture in third trimester, antepartum: Status: Acute Category: Medical Code(s): O42.013 - premature rupture of membranes, onset of labor within 24 hours of rupture, third trimester (3) Gestational diabetes: Problem Comment: GDMA2 Status: Acute Category: Medical Code(s): O24.419 - Gestational diabetes mellitus in , unspecified control (4) Morbid obesity with BMI of 40.0-44.9, adult: Status: Chronic Category: Medical Code(s): E66.01 - Morbid (severe) obesity due to excess calories; Z68.41 - Body mass index [BMI] 40.0-44.9, adult (5) Delivered by section: Status: Acute Category: Medical Code(s): Z38.01 - Single liveborn , delivered by (6) Anemia associated with acute blood loss: Status: Acute Category: Medical Code(s): D62 - Acute posthemorrhagic anemia Plan Advance postop care as tolerating Will repeat cbc tomorrow PO ferrous sulfate for postop anemia
[2022-08-14 06:56] LABS: Basophils # 0.1 K/mm3 (0-0.2); Basophils % 0.5 % (0.1-2.0); Eosinophils # 0.3 K/mm3 (0.0-0.4); Eosinophils % 3.3 % (0.1-12.0); Lymphocytes # 1.8 K/mm3 (0.7-4.5); Lymphocytes % 17.8 % (10-50); Mean Corpuscular HGB Conc 32.6 g/dL (31.8-35.4); Mean Corpuscular Volume 91.9 fl (81-99); Mean Platelet Volume 9.4 fl (7.4-10.4); Monocytes # 0.5 K/mm3 (0.1-1.0); Monocytes % 5.4 % (1.7-9.3); Neutrophils # 7.3 K/mm3 (1.8-7.8); Neutrophils % 73.1 % (37.0-80.0); Platelet Count 216 K/mm3 (142-424); Red Blood Count 3.26 M/mm3 (4.20-5.40); Red Cell Distribution Width 15.9 % (11.5-17.5)
[2022-08-14 06:57] LABS: Hematocrit 29.9 % (37.0-47.0); Hemoglobin 9.8 g/dL (12.2-16.2)
[2022-08-14 13:05] VITALS: BP 121/74; PULSE 108; RESP 16; TEMP 36.6
--- NOTE | 2022-08-14 13:22 | P.PN_ITS ---
Subjective *Date: 08/14/22 *Time: :22 Interval history: POD #2/ PPD #2 She is doing well with no complaints today She is tolerating a regular diet She is ambulating and voiding without difficulty Pain control has been sufficient She is asymptomatic with postop anemia; lochia is appropriate Hgb today 9.8 and she is taking po ferrous sulfate BID WBC today decreased to 10.0 Plan is for discharge tomorrow Medical Exam Vital signs and Labs for Last 24 Hours: Vital Signs Temp Pulse Resp BP 08/14/22 13:05 97.8 F 108 H 16 121/74 Laboratory Results - last 24 hr 08/14/22 06:35: WBC 10.0 D, RBC 3.26 L, Hgb 9.8 L D, Hct 29.9 L, MCV 91.9, MCH 30.0, MCHC 32.6, RDW 15.9, Plt Count 216, MPV 9.4, Neut % (Auto) 73.1, Lymph % (Auto) 17.8, [place] % (Auto) 5.4, Eos % (Auto) 3.3, Baso % (Auto) 0.5, Neut # (Auto) 7.3, Lymph # (Auto) 1.8, [place] # (Auto) 0.5, Eos # (Auto) 0.3, Baso # (Auto) 0.1 I & O for Labs for Last 24 Hours: Intake & Output 08/12/22 08/13/22 08/14/22 08/15/22 11:59 11:59 11:59 11:59 Intake Total 1500 / 1500 Output Total 800 / 800 Balance 700 / 700 Weight 229 lb 220 lb Comment:: No acute distress Comment:: breathing unlabored Comment:: Regular rate, normal peripheral pulses Comments:: abdomen soft, non-distended Mild tenderness Comment:: uterine fundus firm below umbilicus Comment:: 1+ edema bilateral lower extremities Comment:: Incision dry/intact Assessment and Plan *Assessment and plan (1) 35 weeks gestation of : Status: Acute Category: Medical Code(s): Z3A.35 - 35 weeks gestation of (2) premature rupture of membranes (PPROM) with onset of labor within 24 hours of rupture in third trimester, antepartum: Status: Acute Category: Medical Code(s): O42.013 - premature rupture of membranes, onset of labor within 24 hours of rupture, third trimester (3) Delivered by section: Status: Acute Category: Medical Code(s): Z38.01 - Single liveborn infant, delivered by (4) Anemia associated with acute blood loss: Status: Acute Category: Medical Code(s): D62 - Acute posthemorrhagic anemia (5) Gestational diabetes: Problem Comment: GDMA2 Status: Acute Category: Medical Code(s): O24.419 - Gestational diabetes mellitus in , unspecified control (6) Morbid obesity with BMI of 40.0-44.9, adult: Status: Chronic Category: Medical Code(s): E66.01 - Morbid (severe) obesity due to excess calories; Z68.41 - Body mass index [BMI] 40.0-44.9, adult Plan Routine postop/ care Continue po ferrous sulfate Plan for disharge home tomorrow
[2022-08-14 16:00] VITALS: BP 122/68; PULSE 101; RESP 17
[2022-08-15 08:29] VITALS: BP 119/71; PULSE 111; RESP 16; TEMP 36.7; O2SAT 97
--- NOTE | 2022-08-15 08:59 | EXP.DC.SUM ---
General Admission date:: 08/12/22 Discharge date: 08/15/22 HPI HPI HPI: POD # 3 s/p PLTCS Resting comfortably. She is breast and formula feeding. Light lochia. Pain controlled with PO medication. Voiding without difficulty. Passing flatus. Tolerating regular diet. Denies fever/chills, chest pain and shortness of breath. Denies headaches and dizziness. Admits to lower extremity swelling. No calf pain. Hospital Course Hospital Course Hospital Course: Mrs Katelyn Malloy is a 27 yo at 35w6d, by LMP and confirmed by first trimester ultrasound, with EDC 09/10/22 who presents to [facility] L&D with complaint of leakage of fluid. She states she had a gush of fluid 12 at 0930. No further leakage of fluid until this morning. She states this morning she had two gushes of fluid back to back around 1130. She presented to L&D and Amnisure was positive. Cervical exam was 4/75/-2. Patient states she is terrified of vaginal and perineal tears. She was told in the past that she has a narrow pelvis. Patient's mother had a 4th degree perineal laceration. Patient is requesting an elective . Patient underwent a primary on 08/12/22. She delivered a baby girl, [place], weighing 7 lb 2 oz. APGARs 7, 8. EBL 700 mL. Placenta was sent to pathology for review. She did well postoperatively. Vital signs stable, afebrile. She was breast and formula feeding. She admits she is feeling tearful. She received Venofer 200 mg IV x 1 dose. POD # 3 she was doing well. Heart was regular rate and rhythm. Lungs were clear to auscultation. Abdomen was soft, nontender. She had +1 bilateral lower extremity edema. No calf tenderness to palpation. Normal hospital course. Lexapro was increased to 20 mg PO daily. She was discharged to home on POD # 3. Exam Data for Last 24 hours Vital signs and Labs for Last 24 Hours: Temp Pulse Resp BP Pulse Ox 97.8 F 101 H 17 122/68 99 08/14/22 13:05 08/14/22 16:00 08/14/22 16:00 08/14/22 16:00 08/13/22 09:00 Laboratory Results - last 24 hr 08/12/22 13:16: Blood Type O Positive, Antibody Screen Negative, Crossmatch (AHG) See Detail I & O for Last 24 hours: Intake & Output 08/12/22 08/13/22 08/14/22 08/15/22 23:59 23:59 23:59 23:59 Intake Total 1500 / 1500 Output Total 800 / 800 Balance 700 / 700 Weight 229 lb 220 lb Constitutional Constitutional: no acute distress *Routine HEENT Exam Head: Present normocephalic and atraumatic Eye: Absent conjunctivae pink ENT: Present mucous membranes moist *Routine Neck Exam Neck: Present full ROM *Routine Respiratory Exam Respiratory: Present CTA bilaterally and normal respiratory effort *Routine Cardiovascular Exam Cardiovascular: Present RRR *Routine Abdominal Exam Abdominal: Present soft and normoactive bowel sounds; Absent tenderness Comments: Uterine fundus firm and below umbilicus. Pfannenstiel incision clean/dry/intact with steri strips in place *Routine Rectal Exam Patient deferred: visual exam *Routine Exam Patient deferred: external exam *Routine Extremities Exam Extremities: Present edema (+1 bilateral lower extremity edema) and full ROM; Absent calf tenderness *Routine Neurological Exam Neurological: Present alert and oriented X3 Routine Psychiatric Exam Psychiatric: Present normal affect and cooperative Results Data Completed and Pending Labs on day of discharge: Labs from last 24 hours 08/12/22 13:16 Blood Type O Positive Antibody Screen Negative Crossmatch (AHG) See Detail DS: Diagnosis Discharge Diagnosis (1) 35 weeks gestation of : Status: Acute (2) premature rupture of membranes (PPROM) with onset of labor within 24 hours of rupture in third trimester, antepartum: Status: Acute (3) Delivered by section: Status: Acute (4) Anemia associated with acute blood loss: Status: Acute (5) Gestational diabetes: Status: Acute Problem details:
== END 2022-08-15 10:42 | disposition home or self-care (01) | DRG 787 ==
PROVIDERS: Obstetrics & Gynecology; Admitting Provider Obstetrics & Gynecology; PCP Internal Medicine Adolescent Medicine; Visit Provider Obstetrics & Gynecology
PROC: 10D00Z1 Extraction of Products of Conception, Low, Open Approach (ICD-10-PCS; CPT 59514; principal; 2022-08-12 14:30)
DX: O24.429 Gestational diabetes mellitus in childbirth, unspecified control (principal); D62 Acute posthemorrhagic anemia; Z3A.35 35 weeks gestation of pregnancy; Z37.0 Single live birth; O99.214 Obesity complicating childbirth; E66.01 Morbid (severe) obesity due to excess calories; O90.81 Anemia of the puerperium; O42.013 Preterm premature rupture of membranes, onset of labor within 24 hours of rupture, third trimester; O99.344 Other mental disorders complicating childbirth; F41.9 Anxiety disorder, unspecified
CPT/HCPCS: 59514; 36415; 59025; 80053; 80305; 81001; 82800; 82962; 84112; 85025; 86850; 94761; 96372; C9803; G0283; J2405; U0003; U0005

== ENCOUNTER 2022-10-09 11:11 | Emergency (ER) | payer OTHER, SELFPAY ==
[2022-10-09 11:25] VITALS: BP 147/97; PULSE 107; RESP 20; TEMP 36.6; O2SAT 98; BMI 40.6
--- NOTE | 2022-10-09 11:45 | EXP.UTC ---
Discharge Plan Disposition Patient Disposition: Home, Self-Care Condition: Good Prescriptions Prescriptions: New amoxicillin-pot clavulanate 875-125 mg Tablet 1 tab PO Q12H 7 Days Qty: 14 0RF fluticasone propionate [Flonase Allergy Relief] 50 mcg/actuation spray,suspension 1 spray intranasal DAILY Qty: 16 0RF Rx Instructions: administer into each nostril No Action levonorgestrel-ethinyl estrad [Aviane] 0.1-20 mg-mcg tablet 1 tab PO DAILY albuterol sulfate [ProAir HFA] 90 mcg/actuation HFA aerosol inhaler 2 puff IH Q6HP PRN (Reason: shortness of breath or wheezing) escitalopram oxalate [Lexapro] 10 mg tablet 20 mg PO DAILY Qty: 30 3RF Referrals Follow up/Referrals: Braden Ivan MD [Primary Care Provider] - See instructions Activity Restrictions/Add. Instructions Additional Instructions/Restrictions: *Monitor Temp, Over the counter Motrin or Tylenol as directed/as needed Tylenol every 4 hours and Motrin every 6 hours (as long as your family doctor has told you that you can take it) for fever or pain. and straight to ER if unable to lower temp less than 101.0 after medication given *Warm salt water gargles may help to soothe the throat *Throat Lozenges? *Warm fluids like tea with honey may help to soothe the throat? *Sleep elevated *Humidifier/Vaporizer Take medication as prescribed Follow up IMMEDIATELY for new or worsening symptoms or no Noticeable improvement over the next 48-72 hours. 911 for difficulty breathing or swallowing Clinical Impressions Clinical Impression: Sinusitis Qualifiers: Sinusitis location: unspecified location Chronicity: unspecified Qualified Code(s): J32.9 - Chronic sinusitis, unspecified Instructions Patient Instructions: Sinusitis, DI for Sinusitis Discharge ED Provider: Anastasia Camacho [facility] General Stated complaint: Cough congestion headache Mode of Arrival: Ambulatory Source of Information: Patient Limitations: No Limitations Time Seen by Provider: 10/09/22 11:46 Description of Symptoms (Recalled from Triage Doc. by RN): congestion, cough, and MADDEN HEENT Symptoms (Recalled from RN notes): Yes Resp Symptoms (Recalled from RN notes): No Skin Symptoms (Recalled from RN notes): No MS Symptoms (Recalled from RN notes): No Functional Status (Recalled from RN notes): n/a History of Present Illness Provider Complaint: Patient states that she gets sinus infections several times a year and feels like that is what she has now States that she has been having nasal congestion and pressure along with pain/pressure in her yazdanism area and cough States that she came in to get checked before it got too bad Related Data Home Medications Medication Instructions Recorded Confirmed albuterol sulfate 90 mcg/actuation 2 puff inhalation Q6HP PRN 08/12/22 09/29/22 aerosol inhaler (ProAir HFA) shortness of breath or wheezing levonorgestrel-ethinyl estradiol 1 tab PO DAILY . 10/09/22 10/09/22 0.1 mg-20 mcg tablet (Aviane) Previous Rx's Medication Instructions Recorded escitalopram oxalate 10 mg tablet 20 mg PO DAILY MOOD #30 tabs 08/15/22 (Lexapro) amoxicillin 875 mg-potassium 1 tab PO Q12H 7 days #14 tabs 10/09/22 clavulanate 125 mg tablet fluticasone propionate 50 1 spray intranasal DAILY #16 grams 10/09/22 mcg/actuation nasal spray,suspension (Flonase Allergy Relief) Allergies Allergy/AdvReac Type Severity Reaction Status Date / Time No Known Allergies Allergy Verified 10/09/22 11:44 Worker's Comp Is this a Worker's Comp case?: No [facility] Disclaimer: The information contained in this section may have been updated after the patient was seen, as this information can be updated by other users. Medical History Gestational diabetes GDMA2 depression premature rupture of membranes (PPROM) with onset of labor within 24 hours of r
[2022-10-09 12:21] VITALS: BP 147/97; PULSE 107; RESP 20; TEMP 36.6; O2SAT 98
== END 2022-10-09 12:21 | disposition home or self-care (01) ==
PROVIDERS: Emergency Provider Nurse Practitioner; PCP Internal Medicine Adolescent Medicine
DX: J32.9 Chronic sinusitis, unspecified (principal)
CPT/HCPCS: 96372; 99212; 99213; G0463

== ENCOUNTER 2022-10-23 11:46 | Emergency (ER) | payer OTHER, SELFPAY ==
[2022-10-23 12:25] VITALS: BP 131/89; PULSE 87; RESP 16; TEMP 37; O2SAT 98; BMI 41.3
[2022-10-23 12:46] LABS: UTC Strep Screen (Rapid) Negative (Negative)
--- NOTE | 2022-10-23 13:03 | EXP.UTC ---
Discharge Plan Disposition Patient Disposition: Home, Self-Care Condition: Good Prescriptions Prescriptions: New methylprednisolone [Medrol (Harlan)] 4 mg tablets,dose pack See Rx Instructions .Route .COMPLEX 6 Days Qty: 21 0RF Rx Instructions: taper pack; cefdinir 300 mg capsule 300 mg PO BID Qty: 20 0RF No Action levonorgestrel-ethinyl estrad [Aviane] 0.1-20 mg-mcg tablet 1 tab PO DAILY amoxicillin-pot clavulanate 875-125 mg Tablet 1 tab PO Q12H 7 Days Qty: 14 0RF fluticasone propionate [Flonase Allergy Relief] 50 mcg/actuation spray,suspension 1 spray intranasal DAILY Qty: 16 0RF Rx Instructions: administer into each nostril albuterol sulfate [ProAir HFA] 90 mcg/actuation HFA aerosol inhaler 2 puff IH Q6HP PRN (Reason: shortness of breath or wheezing) escitalopram oxalate [Lexapro] 10 mg tablet 20 mg PO DAILY Qty: 30 3RF Referrals Follow up/Referrals: Braden Ivan MD [Primary Care Provider] - See instructions Activity Restrictions/Add. Instructions Additional Instructions/Restrictions: Take medicagtion as prescribed Follow up with your Family Doctor if any life threatening symptoms Return if needed Straight to ER if any life threatening symptoms Clinical Impressions Clinical Impression: Otitis media Instructions Patient Instructions: Middle Ear Infection, DI for Sinusitis, Sinusitis Discharge ED Provider: Anastasia Camacho [facility] [place] HPI General Stated complaint: sore throat, sinus pressure, MADDEN Mode of Arrival: Ambulatory Source of Information: Patient Limitations: No Limitations Time Seen by Provider: 10/23/22 13:04 Description of Symptoms (Recalled from Triage Doc. by RN): PATIENT C/O SORE THROAT AND RIGHT EAR PRESSURE X 1 WEEK HEENT Symptoms (Recalled from RN notes): Yes Resp Symptoms (Recalled from RN notes): No Skin Symptoms (Recalled from RN notes): No MS Symptoms (Recalled from RN notes): No Functional Status (Recalled from RN notes): WNL History of Present Illness Provider Complaint: Patient states that she was seen and treated a couple weeks ago for sinusitis States that she has finished he medication but it hasnt got any better States that she is still having sore throat, pain and pressure in her right ear and feeling like it is stopped up and having some pressure in her sinuses States that today she was still not feeling any better so she came back in Related Data Home Medications Medication Instructions Recorded Confirmed albuterol sulfate 90 mcg/actuation 2 puff inhalation Q6HP PRN 08/12/22 09/29/22 aerosol inhaler (ProAir HFA) shortness of breath or wheezing levonorgestrel-ethinyl estradiol 1 tab PO DAILY . 10/09/22 10/09/22 0.1 mg-20 mcg tablet (Aviane) Previous Rx's Medication Instructions Recorded escitalopram oxalate 10 mg tablet 20 mg PO DAILY MOOD #30 tabs 08/15/22 (Lexapro) amoxicillin 875 mg-potassium 1 tab PO Q12H 7 days #14 tabs 10/09/22 clavulanate 125 mg tablet fluticasone propionate 50 1 spray intranasal DAILY #16 grams 10/09/22 mcg/actuation nasal spray,suspension (Flonase Allergy Relief) cefdinir 300 mg capsule 300 mg PO BID #20 caps 10/23/22 methylprednisolone 4 mg tablets in See Rx Instructions .Route 10/23/22 a dose pack (Medrol (Harlan)) .COMPLEX 6 days #21 tabs Allergies Allergy/AdvReac Type Severity Reaction Status Date / Time No Known Allergies Allergy Verified 10/09/22 11:44 Worker's Comp Is this a Worker's Comp case?: No [facility] Disclaimer: The information contained in this section may have been updated after the patient was seen, as this information can be updated by other users. Medical History (Updated 10/23/22 @ 13:13 by Anastasia Camacho APRN) Anxiety Depression Gestational diabetes depression premature rupture of membranes (PPROM) with onset of labor within 24 hours of rupture in third trimester, antepartum Surgical History (Reviewed 10/23/22 @
[2022-10-23 13:14] VITALS: BP 131/89; PULSE 87; RESP 16; TEMP 37; O2SAT 98
== END 2022-10-23 13:18 | disposition home or self-care (01) ==
PROVIDERS: Emergency Provider Nurse Practitioner; PCP Internal Medicine Adolescent Medicine
DX: H66.90 Otitis media, unspecified, unspecified ear (principal)
CPT/HCPCS: 87880; 99212; 99213; G0463

== ENCOUNTER 2023-02-08 13:38 | Emergency (ER) | payer OTHER, SELFPAY ==
[2023-02-08 13:38] VITALS: BP 108/61; PULSE 93; RESP 18; TEMP 36.7; O2SAT 95; BMI 44.4
--- NOTE | 2023-02-08 14:06 | EXP.UTC ---
Discharge Plan Disposition Patient Disposition: Home, Self-Care Condition: Good Prescriptions Prescriptions: New amoxicillin [amoxicillin] 875 mg tablet 875 mg PO Q12H Qty: 20 0RF methylprednisolone 4 mg Tablets,Dose Pack 4 mg PO DIRECTED Qty: 21 0RF ltygxnmebviejah-unuzjguoo-JK [Bromfed DM] 2-30-10 mg/5 mL Syrup 5 ml PO Q6H PRN (Reason: Cough) Qty: 240 0RF No Action escitalopram oxalate 20 mg tablet See Rx Instructions .ROUTE .COMPLEX Qty: 30 3RF Dose Instruction: TAKE ONE TABLET BY MOUTH EVERY DAY FOR mood Rx Instructions: TAKE ONE TABLET BY MOUTH EVERY DAY FOR mood levonorgestrel-ethinyl estrad [Aviane] 0.1-20 mg-mcg tablet 1 tab PO DAILY amoxicillin-pot clavulanate 875-125 mg Tablet 1 tab PO Q12H 7 Days Qty: 14 0RF fluticasone propionate [Flonase Allergy Relief] 50 mcg/actuation spray,suspension 1 spray intranasal DAILY Qty: 16 0RF Rx Instructions: administer into each nostril albuterol sulfate [ProAir HFA] 90 mcg/actuation HFA aerosol inhaler 2 puff IH Q6HP PRN (Reason: shortness of breath or wheezing) methylprednisolone [Medrol (Harlan)] 4 mg tablets,dose pack See Rx Instructions .Route .COMPLEX 6 Days Qty: 21 0RF Rx Instructions: taper pack; cefdinir 300 mg capsule 300 mg PO BID Qty: 20 0RF Referrals Follow up/Referrals: Braden Ivan MD [Primary Care Provider] - See instructions Activity Restrictions/Add. Instructions Additional Instructions/Restrictions: Drink plenty of fluids. Take tylenol or ibuprofen for pain or fever. Take the medications as directed. Follow up with your regular doctor. GO TO THE ER FOR ANY WORSENING SYMPTOMS Clinical Impressions Clinical Impression: Sinusitis Instructions Patient Instructions: DI for Sinusitis, Sinusitis Discharge ED Provider: Luis Angel Cleary [facility] [place] HPI General Stated complaint: congestion, cough, sore throat Mode of Arrival: Ambulatory Source of Information: Patient Limitations: No Limitations Time Seen by Provider: 02/08/23 14:06 Description of Symptoms (Recalled from Triage Doc. by RN): Patient complaint of severe allergies, cough and congestion. HEENT Symptoms (Recalled from RN notes): Yes Resp Symptoms (Recalled from RN notes): No Skin Symptoms (Recalled from RN notes): No MS Symptoms (Recalled from RN notes): No Functional Status (Recalled from RN notes): wnl History of Present Illness Provider Complaint: She c/o sinus congestion for the past 1 week. Related Data Home Medications Medication Instructions Recorded Confirmed albuterol sulfate 90 mcg/actuation 2 puff inhalation Q6HP PRN 08/12/22 09/29/22 aerosol inhaler (ProAir HFA) shortness of breath or wheezing levonorgestrel-ethinyl estradiol 1 tab PO DAILY . 10/09/22 10/09/22 0.1 mg-20 mcg tablet (Aviane) Previous Rx's Medication Instructions Recorded amoxicillin 875 mg-potassium 1 tab PO Q12H 7 days #14 tabs 10/09/22 clavulanate 125 mg tablet fluticasone propionate 50 1 spray intranasal DAILY #16 grams 10/09/22 mcg/actuation nasal spray,suspension (Flonase Allergy Relief) cefdinir 300 mg capsule 300 mg PO BID #20 caps 10/23/22 methylprednisolone 4 mg tablets in See Rx Instructions .Route 10/23/22 a dose pack (Medrol (Harlan)) .COMPLEX 6 days #21 tabs escitalopram oxalate 20 mg tablet See Rx Instructions .Route 12/16/22 .COMPLEX #30 tabs amoxicillin 875 mg tablet 875 mg PO Q12H #20 tabs 02/08/23 slbohemaluebrav-qqwsvisqjhsdnoy-GB 5 ml PO Q6H PRN Cough #240 mL 02/08/23 2 mg-30 mg-10 mg/5 mL oral syrup (Bromfed DM) methylprednisolone 4 mg tablets in 4 mg PO DIRECTED #21 tabs 02/08/23 a dose pack Allergies Allergy/AdvReac Type Severity Reaction Status Date / Time No Known Allergies Allergy Verified 10/09/22 11:44 Worker's Comp Is this a Worker's Comp case?: No [facility] Disclaimer: The information contained in this section may have been updated after
[2023-02-08 14:36] VITALS: BP 108/61; PULSE 93; RESP 18; TEMP 36.7; O2SAT 95
== END 2023-02-08 14:37 | disposition home or self-care (01) ==
PROVIDERS: Emergency Provider Nurse Practitioner Family; PCP Internal Medicine Adolescent Medicine
DX: J01.90 Acute sinusitis, unspecified (principal); F41.9 Anxiety disorder, unspecified; F32.A Depression, unspecified
CPT/HCPCS: 99212; 99214; G0463

== ENCOUNTER 2023-08-11 10:17 | Emergency (ER) | payer OTHER, SELFPAY ==
[2023-08-11 10:25] VITALS: BP 116/70; PULSE 112; RESP 20; TEMP 37.3; O2SAT 95; BMI 45.1
--- NOTE | 2023-08-11 11:05 | EXP.UTC ---
Discharge Plan Disposition Patient Disposition: Home, Self-Care Condition: Good Prescriptions Prescriptions: New prednisone [prednisone] 20 mg tablet 20 mg PO BID 5 Days Qty: 10 0RF No Action bupropion HCl [Wellbutrin XL] 300 mg tablet extended release 24 hr 300 mg PO DAILY Qty: 30 1RF escitalopram oxalate [Lexapro] 20 mg tablet 20 mg PO DAILY Qty: 30 2RF Referrals Follow up/Referrals: Braden Ivan MD [Primary Care Provider] - See instructions Activity Restrictions/Add. Instructions Additional Instructions/Restrictions: Take over the counter Benadryl as directed on package Start oral steriods tomorrow Follow up with your Family Doctor if symptoms continue Straight to ER if any life threatening symptoms Clinical Impressions Clinical Impression: Urticaria Instructions Patient Instructions: DI for Hives, DI for General Allergic Reactions Discharge ED Provider: Anastasia Camacho [facility] General Stated complaint: allergic reaction Mode of Arrival: Ambulatory Source of Information: Patient Limitations: No Limitations Time Seen by Provider: 08/11/23 11:05 Description of Symptoms (Recalled from Triage Doc. by RN): PATIENT C/O ITCHING AND SWELLING TO HANDS SINCE LAST NIGHT HEENT Symptoms (Recalled from RN notes): No Resp Symptoms (Recalled from RN notes): No Skin Symptoms (Recalled from RN notes): No MS Symptoms (Recalled from RN notes): No Functional Status (Recalled from RN notes): WNL History of Present Illness Provider Complaint: Patient states that last night she noticed hives on her hand around her thumb area and itching to both hands States that when she woke up her hands was red, swollen and has small hive like area on little finger states that she thinks she may be having a reaction to the gloves at work States that she has done this before and it went away but not going away this time Related Data Previous Rx's Medication Instructions Recorded bupropion HCl 300 mg 24 hr tablet, 300 mg PO DAILY #30 tabs 06/27/23 extended release (Wellbutrin XL) escitalopram oxalate 20 mg tablet 20 mg PO DAILY #30 tabs 08/10/23 (Lexapro) prednisone 20 mg tablet 20 mg PO BID 5 days #10 tabs 08/11/23 Allergies Allergy/AdvReac Type Severity Reaction Status Date / Time No Known Allergies Allergy Verified 07/14/23 13:47 Worker's Comp Is this a Worker's Comp case?: No [facility] Disclaimer: The information contained in this section may have been updated after the patient was seen, as this information can be updated by other users. Medical History (Updated 08/11/23 @ 11:34 by Anastasia Camacho APRN) Anxiety Depression Gestational diabetes History of asthma depression premature rupture of membranes (PPROM) with onset of labor within 24 hours of rupture in third trimester, antepartum Surgical History History of ankle surgery History of section Social History (Updated 05/15/23 @ 14:15 by Lily Yadav APRN) Smoking Status: Never smoker second hand exposure: No alcohol intake: never counseling given: No substance use type: denies use counseling given: No current occupational status: employed Travel in the last 8 weeks: None adopted: No caregiver/support person: Yes foster care: No household members: spouse housing: house lives independently: Yes marital status: number of children: 1 number of grandchildren: 0 education level: college current occupation: [employer] current occupational exposures/hazards: No Hx Recent Travel: No sexually active: Yes caffeine: Yes physical activity: none joey/baptism: Rastafarian special joey needs: No working smoke detector in home: Yes fire extinguisher in home: No carbon monox detector in home: Yes firearms in home: No do you feel safe at home: Yes victim of physical abuse: No victim of emotiona
[2023-08-11 11:35] VITALS: BP 116/70; PULSE 112; RESP 20; TEMP 37.3; O2SAT 95
== END 2023-08-11 11:39 | disposition home or self-care (01) ==
PROVIDERS: Emergency Provider Nurse Practitioner; PCP Internal Medicine Adolescent Medicine
DX: L50.0 Allergic urticaria; T78.40XA Allergy, unspecified, initial encounter; J45.909 Unspecified asthma, uncomplicated
CPT/HCPCS: 96372; 99212; 99214; G0463

== ENCOUNTER 2023-08-13 13:19 | Emergency (ER) | payer OTHER, SELFPAY ==
[2023-08-13 14:00] VITALS: BP 110/69; PULSE 86; RESP 20; TEMP 36.7; O2SAT 96; BMI 45.6
--- NOTE | 2023-08-13 14:14 | EXP.UTC ---
Discharge Plan Disposition Patient Disposition: Home, Self-Care Condition: Good Prescriptions Prescriptions: New guaifenesin [Mucinex] 600 mg tablet extended release 12hr 1,200 mg PO BID PRN (Reason: cough) Qty: 20 0RF azithromycin [Zithromax Z-Harlan] 250 mg tablet See Rx Instructions .ROUTE .COMPLEX 5 Days Qty: 6 0RF Rx Instructions: For 250 mg dose pack: take 500 mg today (day 1), then 250 mg for 4 days (days 2-5) No Action bupropion HCl [Wellbutrin XL] 300 mg tablet extended release 24 hr 300 mg PO DAILY Qty: 30 1RF escitalopram oxalate [Lexapro] 20 mg tablet 20 mg PO DAILY Qty: 30 2RF Referrals Follow up/Referrals: Braden Ivan MD [Primary Care Provider] - See instructions Activity Restrictions/Add. Instructions Additional Instructions/Restrictions: Start antibiotic today. Be sure to complete entire prescription even if feeling better Monitor temp. Tylenol every 4 hours as needed and / or ibuprofen every 6 hours as needed ( As long as your primary care physician has told you that it ok to take both. For fever/aches/pains ER if no less than 101 despite Tylenol or Motrin Humidifier/vaporizer or hot steamy shower Mucinex for your cough Be sure to drink lots of water. *Continue steroid. Helps with inflammation therefore, cough and wheezing. Follow directions on the package. Reviewed side effects. Patient reports taking them before. Follow up IMMEDIATELY for new or worsening of symptoms OR no noticeable improvement over the next 48-72 hours. 911 immediately for any life threatening symptoms such as chest pain or difficulty breathing Clinical Impressions Clinical Impression: Bronchitis Stand Alone Forms Stand Alone Forms: Work/School Release Instructions Patient Instructions: Acute Bronchitis, Cough Discharge ED Provider: Anastasia Camacho [facility] [place] General Stated complaint: cough,congestion Mode of Arrival: Ambulatory Source of Information: Patient Limitations: No Limitations Time Seen by Provider: 08/13/23 14:15 Description of Symptoms (Recalled from Triage Doc. by RN): PATIENT C/O COUGH, CONGESTION AND HEADACHE SINCE MONDAY NIGHT HEENT Symptoms (Recalled from RN notes): Yes Resp Symptoms (Recalled from RN notes): Yes Skin Symptoms (Recalled from RN notes): No MS Symptoms (Recalled from RN notes): No Functional Status (Recalled from RN notes): WNL History of Present Illness Provider Complaint: Patient states that she felt like she was getting sick last week States that she has been on Medrol pack for Urticaria and now she is having sinus drainage in the back of her throat and feels like it is trying to move into her chest States that she is having a productive cough at times Related Data Previous Rx's Medication Instructions Recorded bupropion HCl 300 mg 24 hr tablet, 300 mg PO DAILY #30 tabs 06/27/23 extended release (Wellbutrin XL) escitalopram oxalate 20 mg tablet 20 mg PO DAILY #30 tabs 08/10/23 (Lexapro) azithromycin 250 mg tablet See Rx Instructions PO .COMPLEX 5 08/13/23 (Zithromax Z-Harlan) days #6 tabs guaifenesin 600 mg tablet, 1,200 mg PO BID PRN cough #20 tabs 08/13/23 extended release 12 hr (Mucinex) Allergies Allergy/AdvReac Type Severity Reaction Status Date / Time No Known Allergies Allergy Verified 07/14/23 13:47 Worker's Comp Is this a Worker's Comp case?: No PFSH [facility] Disclaimer: The information contained in this section may have been updated after the patient was seen, as this information can be updated by other users. Medical History (Updated 08/13/23 @ 14:29 by Anastasia Camacho APRN) Anxiety Depression Gestational diabetes History of asthma depression premature rupture of membranes (PPROM) with onset of labor within 24 hours of rupture in third trimester, antepartum Surgical History History of ankle surgery History
[2023-08-13 14:21] VITALS: BP 110/69; PULSE 86; RESP 20; TEMP 36.7; O2SAT 96
[2023-08-13 14:41] LABS: Coronavirus 19, PCR Not Detected (NotDetected); Influenza B, PCR Not Detected (NotDetected)
[2023-08-13 15:14] LABS: Influenza A, PCR Detected (NotDetected)
== END 2023-08-13 14:35 | disposition home or self-care (01) ==
PROVIDERS: Emergency Provider Nurse Practitioner; PCP Internal Medicine Adolescent Medicine
DX: J10.1 Influenza due to other identified influenza virus with other respiratory manifestations (principal); J20.9 Acute bronchitis, unspecified; R51.9 Headache, unspecified; R05.9 Cough, unspecified; R09.81 Nasal congestion; R09.82 Postnasal drip
CPT/HCPCS: 87636; 99212; 99214; G0463

== ENCOUNTER 2023-11-28 10:15 | Emergency (ER) | payer OTHER, SELFPAY ==
[2023-11-28 10:30] VITALS: BP 126/72; PULSE 98; RESP 18; TEMP 37.2; O2SAT 98; BMI 40.4
--- NOTE | 2023-11-28 10:47 | EXP.UTC ---
Discharge Plan Disposition Patient Disposition: Home, Self-Care Condition: Good Prescriptions Prescriptions: No Action levonorgestrel-ethinyl estrad [Aviane] 0.1-20 mg-mcg tablet 1 tab PO DAILY Qty: 84 3RF Rx Instructions: 1 tab orally daily; bupropion HCl 300 mg tablet extended release 24 hr See Rx Instructions .ROUTE .COMPLEX Qty: 90 0RF Dose Instruction: TAKE 1 TABLET BY MOUTH DAILY Rx Instructions: TAKE 1 TABLET BY MOUTH DAILY escitalopram oxalate [Lexapro] 20 mg tablet 20 mg PO DAILY Qty: 90 0RF Referrals Follow up/Referrals: Braden Ivan MD [Primary Care Provider] - See instructions Activity Restrictions/Add. Instructions Additional Instructions/Restrictions: *Monitor Temp, Over the counter Motrin or Tylenol as directed/as needed Tylenol every 4 hours and Motrin every 6 hours (as long as your family doctor has told you that you can take it) for fever or pain. and straight to ER if unable to lower temp less than 101.0 after medication given *Warm salt water gargles may help to soothe the throat *Throat Lozenges? *Warm fluids like tea with honey may help to soothe the throat? *Sleep elevated *Humidifier/Vaporizer Your throat swab was sent for culture. Those results are typically sent to your primary care. Be sure to follow up in 2-3 days with your family doctor/primary care physician if no improvement so they can review those result and treat if necessary. If you don?t have a primary care doctor, I recommend you get one but in the mean time, you will have to return to a walk in clinic Follow up IMMEDIATELY for new or worsening symptoms or no Noticeable improvement over the next 48-72 hours. 911 for difficulty breathing or swallowing You were tested for today for Upper Respiratory Panel with COVID19 your test result should be back in the next 24hours, you may check your results on the [facility] Portal Clinical Impressions Clinical Impression: Viral upper respiratory infection Instructions Patient Instructions: Sore Throat, DI for Nasal Congestion Discharge ED Provider: Anastasia Camacho [facility] [place] HPI General Stated complaint: sore throat, headache, congestion Mode of Arrival: Ambulatory Source of Information: Patient Limitations: No Limitations Time Seen by Provider: 11/28/23 10:47 Description of Symptoms (Recalled from Triage Doc. by RN): Pt's symptoms are cough, sore throat, and MADDEN. HEENT Symptoms (Recalled from RN notes): Yes Resp Symptoms (Recalled from RN notes): No Skin Symptoms (Recalled from RN notes): No MS Symptoms (Recalled from RN notes): No Functional Status (Recalled from RN notes): n/a History of Present Illness Provider Complaint: Patient states that she started yesterday with sore throat, nasal congestion, drainage and cough States today she wasnt feeling any better so she came in to get checked worried she may have strep throat and requesting URP if strep is negative Related Data Previous Rx's Medication Instructions Recorded bupropion HCl 300 mg 24 hr tablet, See Rx Instructions .Route 09/27/23 extended release .COMPLEX #90 tabs escitalopram oxalate 20 mg tablet 20 mg PO DAILY #90 tabs 09/27/23 (Lexapro) levonorgestrel-ethinyl estradiol 1 tab PO DAILY #84 tabs 10/12/23 0.1 mg-20 mcg tablet (Aviane) Allergies Allergy/AdvReac Type Severity Reaction Status Date / Time No Known Allergies Allergy Verified 11/28/23 10:40 Worker's Comp Is this a Worker's Comp case?: No [facility] Disclaimer: The information contained in this section may have been updated after the patient was seen, as this information can be updated by other users. Medical History Anxiety Depression History of asthma Surgical History History of ankle surgery History of section Family History Other No significant family history Social History Smoking Status: Never smoker second hand exposure: No alcohol intake: never counseling given: No substance use type: denies use counseling given: No current occupational status: employed Travel in the last 8 weeks: None adopted: No caregiver/support person: Yes foster care: No household members: spouse housing: house lives independently: Yes marital status: number of children: 1 number of grandchildren: 0 education level: college current occupation: [employer] current occupational exposures/hazards: No Hx Recent Travel: No sexually active: Yes caffeine: Yes physical activity: none joey/christianity: Holiness special joey needs: No working smoke detector in home: Yes fire extinguisher in home: No carbon monox detector in home: Yes firearms in home: No do you feel safe at home: Yes victim of physical abuse: No victim of emotional abuse: No victim of sexual abuse: No would you like helpful sources: No ROS Obtained: Yes All systems reviewed & no additional complaints except as documented and Yes Systems reviewed as appropriate & no additional complaints except as documented Constitutional Constitutional: Reports system reviewed and no additional complaints, except as documented and Reports as per HPI ENT Ears, Nose, Mouth, and Throat: Reports system reviewed and no additional complaints, except as documented, Reports as per HPI, Reports nasal congestion, Reports nasal discharge and Reports sore throat Cardiovascular Cardiovascular: Reports system reviewed and no additional complaints, except as documented and Reports as per HPI Respiratory Respiratory: Reports system reviewed and no additional complaints, except as documented, Reports as per HPI and Reports cough Gastrointestinal Gastrointestingal: Reports system reviewed and no additional complaints, except as documented and as per HPI Physical Exam General General appearance: alert and in no apparent distress ENT ENT exam: Present mucous membranes moist Expanded ENT Exam Nose exam: Present sinus tenderness Throat exam: Present tonsillar erythema Respiratory Respiratory exam: Present normal lung sounds bilaterally; Absent respiratory distress or wheezes Cardiovascular Cardiovascular exam: Present regular rate, normal rhythm and normal heart sounds Abdominal Exam Abdominal exam: Present soft and normal bowel sounds; Absent distention or tenderness Neurological Exam Neurological exam: Present alert, oriented X3 and normal gait Medical Decision Making Sigifredo Inquiry Pt receiving controlled substance: No Sigifredo was queried for this patient: No Vital Signs: 11/28/23 10:30 Temperature 98.9 F Temperature Source Oral Pulse Rate [Right Radial] 98 H Respiratory Rate 18 Blood Pressure [Right Arm] 126/72 Blood Pressure Mean [Right Arm] 90 Blood Pressure Source [Right Arm] Automatic Cuff Blood Pressure Position [Right Arm] Sitting 02 Sat by Pulse Oximetry 98 Oxygen Delivery Method Room Air Lab Data Lab results reviewed: Yes I reviewed the patient's lab results.
[2023-11-28 10:54] LABS: UTC Strep Screen (Rapid) Negative (Negative)
[2023-11-28 11:15] VITALS: BP 126/72; PULSE 98; RESP 18; TEMP 37.2; O2SAT 98
[2023-11-28 11:20] LABS: Adenovirus,PCR Not Detected (NotDetected); Coronavirus 19, PCR Not Detected (NotDetected); Coronavirus 229E Not Detected (NotDetected); Coronavirus NL63 Not Detected (NotDetected); Coronavirus OC43 Not Detected (NotDetected); Coronovirus HKU1,PCR Not Detected (NotDetected); Human Metapneumovirus Not Detected (NotDetected); Influenza A, PCR Not Detected (NotDetected); Influenza AH1, 2009 Not Detected (NotDetected); Influenza AH1, PCR Not Detected (NotDetected); Influenza AH3,PCR Not Detected (NotDetected); Influenza B, PCR Not Detected (NotDetected); Parainfluenza 1, PCR Not Detected (NotDetected); Parainfluenza 2, PCR Not Detected (NotDetected); Parainfluenza 3, PCR Not Detected (NotDetected); Parainfluenza 4, PCR Not Detected (NotDetected); Respiratory Syncytial Virus Not Detected (NotDetected); Rhinovirus/Enterovirus Not Detected (NotDetected)
== END 2023-11-28 11:15 | disposition home or self-care (01) ==
PROVIDERS: Emergency Provider Nurse Practitioner; PCP Internal Medicine Adolescent Medicine
DX: R05.9 Cough, unspecified (principal); R07.0 Pain in throat; R09.81 Nasal congestion; J06.9 Acute upper respiratory infection, unspecified
CPT/HCPCS: 87632; 87635; 87880; 99212; 99213; G0463

== ENCOUNTER 2023-12-19 16:50 | Outpatient (CLI) | payer OTHER, SELFPAY ==
[2023-12-19 17:44] LABS: Basophils # 0.1 K/mm3 (0-0.2); Basophils % 1.1 % (0.1-2.0); Eosinophils # 0.3 K/mm3 (0.0-0.4); Eosinophils % 3.6 % (0.1-12.0); Hematocrit 41.6 % (37.0-47.0); Hemoglobin 13.9 g/dL (12.2-16.2); Lymphocytes # 2.5 K/mm3 (0.7-4.5); Lymphocytes % 28.7 % (10-50); Mean Corpuscular HGB Conc 33.4 g/dL (31.8-35.4); Mean Corpuscular Volume 89.7 fl (81-99); Mean Platelet Volume 8.5 fl (7.4-10.4); Monocytes # 0.5 K/mm3 (0.1-1.0); Monocytes % 5.7 % (1.7-9.3); Neutrophils # 5.4 K/mm3 (1.8-7.8); Neutrophils % 60.8 % (37.0-80.0); Platelet Count 352 K/mm3 (142-424); Red Blood Count 4.64 M/mm3 (4.20-5.40); Red Cell Distribution Width 14.3 % (11.5-17.5); White Blood Count 8.8 K/mm3 (4.8-10.8)
[2023-12-19 18:04] LABS: Alanine Aminotransferase 30 U/L (12-78); Albumin Level 4.6 g/dl (3.5-5.0); Albumin/Globulin Ratio 1.6 (1.1-1.8); Alkaline Phosphatase 89 U/L (38-126); Aspartate Amino Transferase 33 U/L (14-36); Bilirubin,Total 0.3 mg/dl (0.2-1.3); Blood Urea Nitrogen 14 mg/dl (7-17); Calcium 10.2 mg/dl (8.4-10.2); Carbon Dioxide 28 mmol/L (22.0-30.0); Chloride 106 mmol/L (98-107); Chol/HDL Ratio 3.6 (1-3.5); Cholesterol 224 mg/dl (140-200); Estimated Glomerular Filt Rate 60 ml/min (>60); GFR (African American) 73 ML/MIN (>60); Globulin 2.8 g/dL (1.3-3.2); Glucose 96 mg/dl (74-100); HDL Cholesterol 63 mg/dl (40-60); Sodium 141 mmol/L (136-145); Total Protein,Serum 7.4 g/dl (6.3-8.2); Triglycerides 155 mg/dl (30-150); VLDL Cholesterol 31 mg/dL (0-40)
[2023-12-19 18:14] LABS: Direct LDL Cholesterol 125.23 mg/dL (100-129)
[2023-12-19 18:18] LABS: 25-OH Vitamin D, Total 36.9 ng/mL (30-100)
[2023-12-19 18:33] LABS: Thyroid Stimulating Hormone 1.99 uIU/mL (0.465-4.68)
[2023-12-19 18:39] LABS: Hemoglobin A1C 5.8 % (4.0-6.0)
[2023-12-19 18:51] LABS: Vitamin B12 555 pg/mL (239-931)
== END 2023-12-19 23:59 | disposition home or self-care (01) ==
LOC: LAB 16:50
PROVIDERS: PCP Internal Medicine Adolescent Medicine; Visit Provider Nurse Practitioner Family
DX: R53.81 Other malaise (principal); R63.5 Abnormal weight gain; Z68.42 Body mass index [BMI] 45.0-49.9, adult
CPT/HCPCS: 36415; 80053; 80061; 82306; 82607; 83036; 84443; 85025

== ENCOUNTER 2024-06-18 08:46 | Emergency (ER) | payer OTHER, SELFPAY ==
[2024-06-18 09:10] VITALS: BP 91/75; PULSE 98; RESP 20; TEMP 37.2; O2SAT 98; BMI 46.6
--- NOTE | 2024-06-18 09:27 | ED_ITS ---
Discharge Plan Disposition Patient Disposition: Home, Self-Care Condition: Good Prescriptions Prescriptions: New methylprednisolone 4 mg Tablets,Dose Pack 4 mg PO DIRECTED 6 Days Qty: 21 0RF Rx Instructions: Take 1 pack as directed for 6 days [id number] [Bromfed DM] 2-30-10 mg/5 mL Syrup 5 ml PO Q6H PRN (Reason: Cough) Qty: 240 0RF cefdinir 300 mg capsule 300 mg PO BID Qty: 20 0RF fluconazole 150 mg tablet 150 mg PO ONCE Qty: 1 3RF No Action bupropion HCl 300 mg tablet extended release 24 hr See Rx Instructions .ROUTE .COMPLEX Qty: 90 1RF Dose Instruction: TAKE 1 TABLET BY MOUTH DAILY Rx Instructions: TAKE 1 TABLET BY MOUTH DAILY escitalopram oxalate [Lexapro] 20 mg tablet 20 mg PO DAILY Qty: 90 0RF levonorgestrel-ethinyl estrad [Aviane] 0.1-20 mg-mcg tablet 1 tab PO DAILY Qty: 84 3RF Rx Instructions: 1 tab orally daily; Referrals Follow up/Referrals: Braden Ivan MD [Primary Care Provider] - See instructions Activity Restrictions/Add. Instructions Additional Instructions/Restrictions: Drink plenty of fluids. Take tylenol or ibuprofen for pain or fever. Take the medications as directed. Follow up with your regular doctor. GO TO THE ER FOR ANY WORSENING SYMPTOMS Clinical Impressions Clinical Impression: Asthma exacerbation Instructions Patient Instructions: DI for Asthma -- Adult Print Language Print Language: Hungarian Discharge ED Provider: Luis Angel Cleary [facility] General Stated complaint: cough, congestion Mode of Arrival: Ambulatory Source of Information: Patient Limitations: No Limitations Time Seen by Provider: 06/18/24 09:27 Description of Symptoms (Recalled from Triage Doc. by RN): PATIENT C/O COUGH, CONGESTION, AND DRAINAGE X 3 DAYS HEENT Symptoms (Recalled from RN notes): Yes Resp Symptoms (Recalled from RN notes): Yes Skin Symptoms (Recalled from RN notes): No MS Symptoms (Recalled from RN notes): No Functional Status (Recalled from RN notes): WNL History of Present Illness Provider Complaint: She states that for the past 3 days she has had chest congestion, productive cough and sinus congestion. she has a history of asthma. Related Data Previous Rx's ?Medication ?Instructions ?Recorded levonorgestrel-ethinyl estradiol 1 tab PO DAILY #84 tabs 12/21/23 0.1 mg-20 mcg tablet (Aviane) bupropion HCl 300 mg 24 hr tablet, See Rx Instructions .Route 02/08/24 extended release .COMPLEX #90 tabs escitalopram oxalate 20 mg tablet 20 mg PO DAILY #90 tabs 02/08/24 (Lexapro) [id number] 5 ml PO Q6H PRN Cough #240 mL 06/18/24 2 mg-30 mg-10 mg/5 mL oral syrup (Bromfed DM) cefdinir 300 mg capsule 300 mg PO BID #20 caps 06/18/24 fluconazole 150 mg tablet 150 mg PO ONCE 1 dose #1 tab 06/18/24 methylprednisolone 4 mg tablets in 4 mg PO DIRECTED 6 days #21 tabs 06/18/24 a dose pack Allergies Allergy/AdvReac Type Severity Reaction Status Date / Time No Known Allergies Allergy Verified 02/08/24 15:27 Worker's Comp Is this a Worker's Comp case?: No [facility] Disclaimer: The information contained in this section may have been updated after the patient was seen, as this information can be updated by other users. Medical History Anxiety Depression History of asthma Surgical History History of ankle surgery History of section Family History Other No significant family history Social History Smoking Status: Never smoker second hand exposure: No alcohol intake: never counseling given: No substance use type: denies use counseling given: No current occupational status: employed Travel in the last 8 weeks: None adopted: No caregiver/support person: Yes foster care: No household members: spouse housing: house lives independently: Yes marital status: number of children: 1 number of grandchildren: 0 education level: college current occupation: [employer] current occupational exposures/hazards: No Hx Recent Travel: No sexually active: Yes caffeine: Yes physical activity: none joey/latter day: Orthodox special joey needs: No working smoke detector in home: Yes fire extinguisher in home: No carbon monox detector in home: Yes firearms in home: No do you feel safe at home: Yes victim of physical abuse: No victim of emotional abuse: No victim of sexual abuse: No would you like helpful sources: No ROS Obtained: Yes All systems reviewed & no additional complaints except as documented Constitutional Constitutional: Reports poor appetite Eyes Eyes: Reports system reviewed and no additional complaints, except as documented ENT Ears, Nose, Mouth, and Throat: Reports as per HPI Cardiovascular Cardiovascular: Reports system reviewed and no additional complaints, except as documented and Denies chest pain Respiratory Respiratory: Denies shortness of breath, Reports chest congestion, Reports cough, Denies stridor and Denies wheezing Gastrointestinal Gastrointestingal: Reports system reviewed and no additional complaints, except as documented; Denies abdominal pain, diarrhea or vomiting Musculoskeletal Musculoskeletal: Reports system reviewed and no additional complaints, except as documented and Denies arthralgias Integumentary/Breasts Skin/Breast: Reports system reviewed and no additional complaints, except as documented and Denies rash Neurologic Neurologic: Denies paresthesias Allergic/Immunologic Allergic/Immunologic: Denies wheezing Physical Exam General General appearance: alert and in no apparent distress Eye Eye exam: Present normal appearance, PERRL and EOMI ENT ENT exam: Present mucous membranes moist and normal external ear exam Expanded ENT Exam External ear exam: Present normal external inspection TM/Canal exam: Bilateral TM: erythema and bulging Nose exam: Absent sinus tenderness Nasal speculum exam: Bilateral: normal Mouth exam: Present normal external inspection; Absent drooling Teeth exam: Present normal inspection Throat exam: Present tonsillar erythema and tonsillomegaly Neck Neck exam: Present normal inspection, full ROM and trachea midline; Absent tenderness, lymphadenopathy or thyromegaly Chest Chest inspection: Present normal inspection and symmetric chest wall rise; Absent tenderness or rash Respiratory Respiratory exam: Present normal lung sounds bilaterally; Absent respiratory distress, wheezes, stridor or accessory muscle use Cardiovascular Cardiovascular exam: Present regular rate, normal rhythm and normal heart sounds Abdominal Exam Abdominal exam: Present soft; Absent distention, tenderness, guarding, rebound or rigidity Extremities Exam Extremities exam: Present normal inspection, full ROM and normal capillary refill; Absent tenderness or calf tenderness Back Exam Back exam: Present normal inspection and full ROM; Absent tenderness Neurological Exam Neurological exam: Present alert and oriented X3 Psychiatric Psychiatric exam: Present normal affect and normal mood Skin Skin exam: Present warm, dry, intact and normal color Lymphatic Lymphatic Findings: no adenopathy Medical Decision Making Medical Records Medical records reviewed: No I reviewed the patient's medical records. Screening: Per USPSTF and CDC recommendations, given the prevalence of disease in our region, it is our hospital?s policy to screen for HIV and viral Hepatitis for a ll patients aged 18 and over and those with ongoing risk factors. Sigifredo Inquiry Pt receiving controlled substance: No Vital Signs: 06/18/24 09:10 Temperature 99.0 F Temperature Source Oral Pulse Rate [Left Brachial] 98 H Respiratory Rate 20 Blood Pressure [Left Arm] 91/75 L Blood Pressure Mean [Left Arm] 80 Blood Pressure Source [Left Arm] Automatic Cuff Blood Pressure Position [Left Arm] Sitting 02 Sat by Pulse Oximetry 98 Oxygen Delivery Method Room Air Lab Data Lab results reviewed: Yes I reviewed the patient's lab results.
[2024-06-18 09:40] VITALS: BP 91/75; PULSE 98; RESP 20; TEMP 37.2; O2SAT 98
== END 2024-06-18 09:42 | disposition home or self-care (01) ==
PROVIDERS: Emergency Provider Nurse Practitioner Family; PCP Internal Medicine Adolescent Medicine
DX: J45.901 Unspecified asthma with (acute) exacerbation (principal)
CPT/HCPCS: 99213; G0381

== ENCOUNTER 2024-08-12 06:12 | Emergency (ER) | payer OTHER, SELFPAY ==
[2024-08-12 06:13] VITALS: BP 127/80; PULSE 97; RESP 18; TEMP 36.8; O2SAT 97; BMI 46.4
--- NOTE | 2024-08-12 06:33 | ED_ITS ---
Discharge Plan Disposition Patient Disposition: Home, Self-Care Prescriptions Prescriptions: New methocarbamol 500 mg tablet 500 mg PO Q6H PRN (Reason: pain) Qty: 30 0RF lidocaine 5 % adhesive patch,medicated 1 patch topical DAILY PRN (Reason: pain) Qty: 30 0RF Rx Instructions: leave on most painful area for up to 12 hrs No Action bupropion HCl 300 mg tablet extended release 24 hr See Rx Instructions .ROUTE .COMPLEX Qty: 90 1RF Dose Instruction: TAKE 1 TABLET BY MOUTH DAILY Rx Instructions: TAKE 1 TABLET BY MOUTH DAILY levonorgestrel-ethinyl estrad [Aviane] 0.1-20 mg-mcg tablet 1 tab PO DAILY Qty: 84 3RF Rx Instructions: 1 tab orally daily; escitalopram oxalate [Lexapro] 20 mg tablet 20 mg PO DAILY Qty: 90 0RF methylprednisolone 4 mg Tablets,Dose Pack 4 mg PO DIRECTED 6 Days Qty: 21 0RF Rx Instructions: Take 1 pack as directed for 6 days [id number] [Bromfed DM] 2-30-10 mg/5 mL Syrup 5 ml PO Q6H PRN (Reason: Cough) Qty: 240 0RF cefdinir 300 mg capsule 300 mg PO BID Qty: 20 0RF fluconazole 150 mg tablet 150 mg PO ONCE Qty: 1 3RF Referrals Follow up/Referrals: Braden Ivan MD [Primary Care Provider] - See instructions Activity Restrictions/Add. Instructions Additional Instructions/Restrictions: Please follow-up with your primary care provider. Please return to the emergency department if you develop any new or worsening symptoms or become concerned for your health. Please take Tylenol and ibuprofen as needed for pain. Please take Robaxin as needed for pain. Please use lidocaine patches. Clinical Impressions Clinical Impression: Sciatica of left side Stand Alone Forms Stand Alone Forms: Work/School Release Instructions Patient Instructions: DI for Low Back Pain Print Language Print Language: Mauritanian Discharge ED Provider: Hoang Lucio Adult [facility] General Chief complaint: Back Pain/Injury Stated complaint: sciatic nerve pain Time Seen by Provider: 08/12/24 06:15 Mode of Arrival: Ambulatory Source of Information: Patient Limitations: No Limitations Description of Symptoms (Recalled from ER Triage Doc. by RN): Patient reports mid/lower back pain radiating down her left leg. States pain started a week ago- was adjusted at the chiro for it. States it got worse last night and she isn't able to take the pain now. States she had 800mg Ibu. around an hour [employer] History of Present Illness HPI narrative: 29-year-old female with history of prior side, obese, no other significant past medical history presents for back pain. She reports that she has had back pain on and off her whole life. It is worse yesterday and today. She reports it is low back and radiating down the left leg with intermittent tingling. She reports no weakness. She denies any perianal or genital anesthesia, denies any urinary changes. No fever or illness. She reports there is no chance she could be . Denies drug or alcohol use. Related Data Previous Rx's ?Medication ?Instructions ?Recorded levonorgestrel-ethinyl estradiol 1 tab PO DAILY #84 tabs 12/21/23 0.1 mg-20 mcg tablet (Aviane) bupropion HCl 300 mg 24 hr tablet, See Rx Instructions .Route 02/08/24 extended release .COMPLEX #90 tabs ihlyvvpajassdsz-wysvhmjeskdxomv-UV 5 ml PO Q6H PRN Cough #240 mL 06/18/24 2 mg-30 mg-10 mg/5 mL oral syrup (Bromfed DM) cefdinir 300 mg capsule 300 mg PO BID #20 caps 06/18/24 fluconazole 150 mg tablet 150 mg PO ONCE 1 dose #1 tab 06/18/24 methylprednisolone 4 mg tablets in 4 mg PO DIRECTED 6 days #21 tabs 06/18/24 a dose pack escitalopram oxalate 20 mg tablet 20 mg PO DAILY #90 tabs 08/06/24 (Lexapro) lidocaine 5 % topical patch 1 patch topical DAILY PRN pain #30 08/12/24 ea methocarbamol 500 mg tablet 500 mg PO Q6H PRN pain #30 tabs 08/12/24 Allergies Allergy/AdvReac Type Severity Reaction Status Date / Time No Known Allergies Allergy Verified 02/08/24 15:27 [facility] Disclaimer: The information contained in this section may have been updated after the patient was seen, as this information can be updated by other users. Medical History Anxiety Depression History of asthma Surgical History History of ankle surgery History of section Family History Other No significant family history Social History Smoking Status: Never smoker second hand exposure: No alcohol intake: never counseling given: No substance use type: denies use counseling given: No current occupational status: employed Travel in the last 8 weeks: None adopted: No caregiver/support person: Yes foster care: No household members: spouse housing: house lives independently: Yes marital status: number of children: 1 number of grandchildren: 0 education level: college current occupation: [employer] current occupational exposures/hazards: No Hx Recent Travel: No sexually active: Yes caffeine: Yes physical activity: none joey/christianity: Nondenominational special joey needs: No working smoke detector in home: Yes fire extinguisher in home: No carbon monox detector in home: Yes firearms in home: No do you feel safe at home: Yes victim of physical abuse: No victim of emotional abuse: No victim of sexual abuse: No would you like helpful sources: No Other Medical History Have you received the Flu Vaccine for this season: No Have you received the Pneumonia Vaccine: No ROS Obtained: Yes All systems reviewed & no additional complaints except as documented Physical Exam General General appearance: alert and in no apparent distress Head Head exam: atraumatic and normocephalic Eye Eye exam: Present normal appearance, PERRL and EOMI ENT ENT exam: Present normal oropharynx and normal external ear exam Neck Neck exam: Present normal inspection and full ROM Chest Chest inspection: Present normal inspection and symmetric chest wall rise; Absent tenderness Respiratory Respiratory exam: Present normal lung sounds bilaterally; Absent respiratory distress Cardiovascular Cardiovascular exam: Present regular rate and normal rhythm Abdominal Exam Abdominal exam: Present soft; Absent distention, tenderness or guarding Extremities Exam Extremities exam: Present normal inspection; Absent edema or joint swelling Back Exam Back exam: Present normal inspection and tenderness (Left paraspinal) Neurological Exam Neurological exam: Present alert, oriented X3, normal gait and reflexes normal; Absent motor sensory deficit Psychiatric Psychiatric exam: Present normal affect and normal mood Skin Skin exam: Present warm, dry and normal color Lymphatic Lymphatic Findings: no adenopathy Medical Decision Making Medical Records Medical records reviewed: Yes I reviewed the patient's medical records. Screening: Per USPSTF and CDC recommendations, given the prevalence of disease in our region, it is our hospital?s policy to screen for HIV and viral Hepatitis for all patients aged 18 and over and those with ongoing risk factors. Sigifredo Inquiry Pt receiving controlled substance: No Sigifredo was queried for this patient: No Vital Signs: 08/12/24 06:13 Temperature 98.3 F Temperature Source Oral Pulse Rate [Left Radial] 97 H Respiratory Rate 18 Blood Pressure [Left Arm] 127/80 Blood Pressure Mean [Left Arm] 95 Blood Pressure Source [Left Arm] Automatic Cuff Blood Pressure Position [Left Arm] Supine 02 Sat by Pulse Oximetry 97 Oxygen Delivery Method Room Air Lab Data Lab results reviewed: Yes I reviewed the patient's lab results. Orders (Tests/Meds): ED MEDICATIONS Generic Name Dose Route Start Last Admin Trade Name Freq PRN Reason Stop Dose Admin Lidocaine 1 each 08/12/24 06:30 Lidocaine 5% Transdermal Patch TP 08/12/24 06:31 ONCE ONE Methocarbamol 500 mg 08/12/24 06:30 Methocarbamol 500mg Tablet PO 08/12/24 06:31 ONCE ONE Medical Decision Narrative: 29-year-old female without significant past medical history presents for worsening low back pain and left leg radicular symptoms.. History was obtained via interactive discussion with patient and family chart review. On arrival, patient is [afebrile, hemodynamically stable, satting appropriately, alert, or iented x4, GCS 15], moving all extremities spontaneously. Full physical exam performed and significant for positive straight leg raise, no concerning neurologic findings. Differential includes but is not limited to sciatica, lumbar back strain, disc herniation, cauda equina.. Patient was given Robaxin and lidocaine patch for symptomatic management and correction of underlying abnormalities. CT/MRI imaging was considered, but deemed unnecessary due to no significant concern for acute spinal cord pathology based on history exam.. Given patient history, exam and workup, patient's presentation most likely represents left sciatica. These findings were communicated with patient and she was given instructions regarding symptomatic care. She is discharged prescription for Robaxin and lidocaine patches.. Procedures Risk/Benefits of Procedure(s) Were Explained: Yes Critical Care Critical Care Time Critical Care Time: No
[2024-08-12] MEDS: LIDOCAINE 5% TRANSDERMAL PATCH 1 EACH TP (06:35)
[2024-08-12] MEDS: METHOCARBAMOL 500MG TABLET 500 MG PO (06:35)
[2024-08-12 06:37] VITALS: BP 127/68; PULSE 72; RESP 18; TEMP 36.6; O2SAT 98
== END 2024-08-12 06:41 | disposition home or self-care (01) ==
PROVIDERS: Emergency Provider Emergency Medicine; PCP Internal Medicine Adolescent Medicine
DX: M54.32 Sciatica, left side (principal); M54.50 Low back pain, unspecified
CPT/HCPCS: 99283